=== PATIENT | female | born 1955 | race Caucasian/White ===

== ENCOUNTER 2016-11-23 08:56 | Outpatient (RCR) | payer MEDICARE, MEDICAID ==
[~2016-11-23] VITALS: Ht 157.5 cm; Wt 68.0 kg
== END 2016-12-05 | disposition home or self-care (01) ==
LOC: WCC 08:56
DX: L89.623 Pressure ulcer of left heel, stage 3 (principal); I73.9 Peripheral vascular disease, unspecified; E11.622 Type 2 diabetes mellitus with other skin ulcer; I12.0 Hypertensive chronic kidney disease with stage 5 chronic kidney disease or end stage renal disease; E11.22 Type 2 diabetes mellitus with diabetic chronic kidney disease; N18.6 End stage renal disease; J44.9 Chronic obstructive pulmonary disease, unspecified; Z86.718 Personal history of other venous thrombosis and embolism; Z79.82 Long term (current) use of aspirin
CPT/HCPCS: 11042; 82962

== ENCOUNTER 2016-12-07 08:43 | Outpatient (RCR) | payer MEDICARE, MEDICAID | END 2017-01-05 | disposition home or self-care (01) | LOC: WCC 08:43 | DX: L89.623 Pressure ulcer of left heel, stage 3 (principal); I73.9 Peripheral vascular disease, unspecified; E11.622 Type 2 diabetes mellitus with other skin ulcer; I12.0 Hypertensive chronic kidney disease with stage 5 chronic kidney disease or end stage renal disease; E11.22 Type 2 diabetes mellitus with diabetic chronic kidney disease; N18.6 End stage renal disease; Z79.82 Long term (current) use of aspirin; Z86.718 Personal history of other venous thrombosis and embolism; J44.9 Chronic obstructive pulmonary disease, unspecified | CPT/HCPCS: 11042; 11043; 82962; 87070; 87181; 87205 ==

== ENCOUNTER 2017-01-17 13:30 | Outpatient (RCR) | payer MEDICARE, MEDICAID | END 2017-02-04 | disposition home or self-care (01) | LOC: WCC 13:30 | DX: L97.423 Non-pressure chronic ulcer of left heel and midfoot with necrosis of muscle (principal); E11.622 Type 2 diabetes mellitus with other skin ulcer; I73.9 Peripheral vascular disease, unspecified; I12.0 Hypertensive chronic kidney disease with stage 5 chronic kidney disease or end stage renal disease; E11.22 Type 2 diabetes mellitus with diabetic chronic kidney disease; N18.6 End stage renal disease; Z99.2 Dependence on renal dialysis; J44.9 Chronic obstructive pulmonary disease, unspecified; Z86.718 Personal history of other venous thrombosis and embolism; F32.9 Major depressive disorder, single episode, unspecified; H54.8 Legal blindness, as defined in USA | CPT/HCPCS: 11042; 11043 ==

== ENCOUNTER 2017-02-07 13:30 | Outpatient (RCR) | payer MEDICARE, MEDICAID | END 2017-03-07 | disposition home or self-care (01) | LOC: WCC 13:30 | DX: L97.423 Non-pressure chronic ulcer of left heel and midfoot with necrosis of muscle (principal); I73.9 Peripheral vascular disease, unspecified; E11.622 Type 2 diabetes mellitus with other skin ulcer; I12.0 Hypertensive chronic kidney disease with stage 5 chronic kidney disease or end stage renal disease; E11.22 Type 2 diabetes mellitus with diabetic chronic kidney disease; N18.6 End stage renal disease; J44.9 Chronic obstructive pulmonary disease, unspecified; F32.9 Major depressive disorder, single episode, unspecified; Z79.82 Long term (current) use of aspirin; Z86.718 Personal history of other venous thrombosis and embolism | CPT/HCPCS: 11043; G0463 ==

== ENCOUNTER 2017-03-14 13:49 | Outpatient (RCR) | payer MEDICARE, MEDICAID | END 2017-04-06 | disposition home or self-care (01) | LOC: WCC 13:49 | DX: I73.9 Peripheral vascular disease, unspecified (principal); E11.622 Type 2 diabetes mellitus with other skin ulcer; L97.423 Non-pressure chronic ulcer of left heel and midfoot with necrosis of muscle; I12.0 Hypertensive chronic kidney disease with stage 5 chronic kidney disease or end stage renal disease; E11.22 Type 2 diabetes mellitus with diabetic chronic kidney disease; N18.6 End stage renal disease; J44.9 Chronic obstructive pulmonary disease, unspecified; Z86.718 Personal history of other venous thrombosis and embolism; F32.9 Major depressive disorder, single episode, unspecified; H54.8 Legal blindness, as defined in USA; Z79.82 Long term (current) use of aspirin | CPT/HCPCS: 11042; G0463 ==

== ENCOUNTER 2017-04-18 14:49 | Outpatient (RCR) | payer MEDICARE, MEDICAID | END 2017-05-07 | disposition home or self-care (01) | LOC: WCC 14:49 | DX: L97.423 Non-pressure chronic ulcer of left heel and midfoot with necrosis of muscle (principal); I73.9 Peripheral vascular disease, unspecified; E11.622 Type 2 diabetes mellitus with other skin ulcer; I12.0 Hypertensive chronic kidney disease with stage 5 chronic kidney disease or end stage renal disease; E11.22 Type 2 diabetes mellitus with diabetic chronic kidney disease; N18.6 End stage renal disease; J44.9 Chronic obstructive pulmonary disease, unspecified; Z86.718 Personal history of other venous thrombosis and embolism; Z79.82 Long term (current) use of aspirin; F32.9 Major depressive disorder, single episode, unspecified | CPT/HCPCS: G0463 ==

== ENCOUNTER 2017-05-23 15:27 | Outpatient (RCR) | payer MEDICARE, MEDICAID | END 2017-06-07 | disposition home or self-care (01) | LOC: WCC 15:27 | DX: L89.623 Pressure ulcer of left heel, stage 3 (principal); E11.621 Type 2 diabetes mellitus with foot ulcer; I12.0 Hypertensive chronic kidney disease with stage 5 chronic kidney disease or end stage renal disease; E11.22 Type 2 diabetes mellitus with diabetic chronic kidney disease; N18.6 End stage renal disease; Z99.2 Dependence on renal dialysis; F32.9 Major depressive disorder, single episode, unspecified; Z86.718 Personal history of other venous thrombosis and embolism; J44.9 Chronic obstructive pulmonary disease, unspecified | CPT/HCPCS: 11042; 11043 ==

== ENCOUNTER 2017-06-20 14:11 | Outpatient (RCR) | payer MEDICARE, MEDICAID ==
[2017-07-04] MEDS ORDERED: LANTUS SOL100 UNIT/1 SUBQ (17:04)
[2017-07-04] MEDS ORDERED: AMLODIPINE BESYL5 MG ORAL (17:04)
[2017-07-04] MEDS ORDERED: LOSARTAN POTASS25 MG ORAL (17:04)
[2017-07-04] MEDS ORDERED: SIMVASTATIN40 MG ORAL (17:04)
[2017-07-04] MEDS ORDERED: LABETALOL HCL200 MG ORAL (17:04)
== END 2017-07-05 | disposition home or self-care (01) ==
LOC: WCC 14:11
DX: L89.623 Pressure ulcer of left heel, stage 3 (principal); E11.621 Type 2 diabetes mellitus with foot ulcer; I12.0 Hypertensive chronic kidney disease with stage 5 chronic kidney disease or end stage renal disease; E11.22 Type 2 diabetes mellitus with diabetic chronic kidney disease; N18.6 End stage renal disease; Z99.2 Dependence on renal dialysis; J44.9 Chronic obstructive pulmonary disease, unspecified; Z86.718 Personal history of other venous thrombosis and embolism; F32.9 Major depressive disorder, single episode, unspecified
CPT/HCPCS: 11042; 82962; G0463

== ENCOUNTER 2017-07-04 15:13 | Inpatient (IN) | payer MEDICARE, MEDICAID ==
[~2017-07-04] VITALS: Ht 160 cm; Wt 79.8 kg
--- NOTE | 2017-07-04 15:49 | Emergency Room Report ---
History of Present Illness General Chief Complaint: Altered Mental Status Source: Family Member Present Illness HPI 62-year-old female presents ED for evaluation. Patient brought in by sister from wound care clinic across the street. Sister states that patient appears more confused than normal today. Patient is referred here by podiatry for further evaluation. Patient states she feels okay. However sister and nursing staff and wound care clinic state that patient does appear more confused. No fevers or chills. Patient has history of end-stage renal disease and get dialysis Mondays and and Monday. Patient had dialysis yesterday. Patient has a past is catheter in her right upper chest. Patient has refused AV fistula. Patient was at care clinic for wound to her left foot. Nursing at wound care clinic states that the wound appears ok. Sister states that patient had a cough today. Nonproductive. Denies chest pain or shortness of breath. No other aggravating or relieving factors. Denies any other associated symptoms Allergies: Coded Allergies: NO KNOWN DRUG ALLERGIES (Verified Allergy, Unknown, 11/25/16) Patient History Past Medical History: dementia, renal disease, dialysis Past Surgical History: none Pertinent Family History: none Social History: Denies: smoking, alcohol use, drug use Last Menstrual Period: Unk Now: No Immunizations: UTD Reviewed Nursing Documentation: PMH: Agreed, PSxH: Agreed Nursing Documentation-PMH Hx Diabetes: Yes Hx Dialysis: Yes - Monday, , Monday Review of Systems All Other Systems: negative except mentioned in HPI Physical Exam Vital Signs Date Time Temp Pulse Resp B/P (MAP) Pulse Ox O2 Delivery O2 Flow Rate FiO2 07/04/17 15:27 100.1 65 14 117/55 93 Room Air 100.0 Sp02 EP Interpretation: reviewed, normal General Appearance: no apparent distress, GCS 15, non-toxic, other - confused Head: normocephalic Eyes: bilateral eye normal inspection, bilateral eye PERRL ENT: normal ENT inspection Neck: normal inspection Respiratory: chest non-tender, lungs clear, normal breath sounds, speaking full sentences Cardiovascular #1: regular rate, rhythm, no edema Gastrointestinal: normal bowel sounds, non tender, soft, non-distended, no guarding, no rebound Rectal: deferred Genitourinary: no CVA tenderness Musculoskeletal: normal inspection Neurologic: other - confused Psychiatric: other - confused Skin: normal inspection Lymphatic: normal inspection Medical Decision Making Diagnostic Impression: Primary Impression: Altered mental status Qualified Codes: R41.82 - Altered mental status, unspecified Additional Impressions: ESRD (end stage renal disease) on dialysis Sepsis Qualified Codes: A41.9 - Sepsis, unspecified organism UTI (urinary tract infection) Qualified Codes: N39.0 - Urinary tract infection, site not specified Elevated troponin ER Course Hospital Course 62-year-old female presents with acute onset of confusion during wound care session today Differential diagnoses include: Pneumonia, UTI, sepsis, dehydration, [place]/ unstable angina Clinical course Patient placed on stretcher. On cardiac catheterization technician with stable vitals are ED course. After initial history and physical, I ordered labs, EKG, chest x-ray, blood cultures, CT Head Labs - BUN/Cr elevated, noted leukocytosis, troponins 0.531, lactate > 3, UA grossly positive for UTI CT Head - chronic ischemic changes, no acute process CXR - no acute process, dialysis catheter in place EKG - NSR, no acute ischemic changes interpreted by me Patient denies chest pain. Elevated troponin likely due to troponin leak from end-stage renal disease Abx given. Given aspirin. Patient not given IV fluids because of end-stage renal disease and risk for fluid overload Case discussed with Dr Novak and they agreed to admit patient to their service for further care and support I feel this is a highly complex case requiring extensive working including EKG/ Rhythm strip, Xray/CT/US, Blood/urine lab work, repeat exams while in ED, and administration of strong opiates/narcotics for pain control, admission to hospital or close patient follow up. Diagnosis - AMS, ESRD on dialysis, sepsis, UTI, elevated troponin Patient admitted to telemetry in serious condition Labs Test 07/04/17 15:45 07/04/17 16:45 White Blood Count 8.7 K/UL (4.8-10.8) Red Blood Count 3.44 M/UL (4.20-5.40) Hemoglobin 10.4 G/DL (12.0-16.0) Hematocrit 31.7 % (37.0-47.0) Mean Corpuscular Volume 92 FL (80-99) Mean Corpuscular Hemoglobin 30.3 PG (27.0-31.0) Mean Corpuscular Hemoglobin Concent 32.8 G/DL (32.0-36.0) Red Cell Distribution Width 14.4 % (11.6-14.8) Platelet Count 199 K/UL (150-450) Mean Platelet Volume 8.7 FL (6.5-10.1) Neutrophils (%) (Auto) 69.6 % (45.0-75.0) Lymphocytes (%) (Auto) 12.3 % (20.0-45.0) Monocytes (%) (Auto) 16.4 % (1.0-10.0) Eosinophils (%) (Auto) 0.3 % (0.0-3.0) Basophils (%) (Auto) 1.3 % (0.0-2.0) Sodium Level 137 MMOL/L (136-145) Potassium Level 4.2 MMOL/L (3.5-5.1) Chloride Level 97 MMOL/L (98-107) Carbon Dioxide Level 27 MMOL/L (21-32) Anion Gap 13 mmol/L (5-15) Blood Urea Nitrogen 46 mg/dL (7-18) Creatinine 6.5 MG/DL (0.55-1.30) Estimat Glomerular Filtration Rate 6.5 mL/min (>60) Glucose Level 142 MG/DL (74-106) Lactic Acid Level 3.50 mmol/L (0.66-2.22) Calcium Level 7.8 MG/DL (8.5-10.1) Total Bilirubin 0.4 MG/DL (0.2-1.0) Aspartate Amino Transf (AST/SGOT) 34 U/L (15-37) Alanine Aminotransferase (ALT/SGPT) 18 U/L (12-78) Alkaline Phosphatase 83 U/L (46-116) Total Creatine Kinase 679 U/L (26-308) Creatine Kinase MB 4.1 NG/ML (0.0-3.6) Creatine Kinase MB Relative Index 0.6 Troponin I 0.531 ng/mL (0.000-0.056) Pro-B-Type Natriuretic Peptide > 92670 pg/mL (0-125) Total Protein 7.5 G/DL (6.4-8.2) Albumin 3.2 G/DL (3.4-5.0) Globulin 4.3 g/dL Albumin/Globulin Ratio 0.7 (1.0-2.7) Urine Color Yellow Urine Appearance Cloudy Urine pH 6 (4.5-8.0) Urine Specific [place] 1.015 (1.005-1.035) Urine Protein 4+ (NEGATIVE) Urine Glucose (UA) 3+ (NEGATIVE) Urine Ketones 1+ (NEGATIVE) Urine Occult Blood 5+ (NEGATIVE) Urine Nitrite Negative (NEGATIVE) Urine Bilirubin Negative (NEGATIVE) Urine Urobilinogen Normal MG/DL (0.0-1.0) Urine Leukocyte Esterase 1+ (NEGATIVE) Urine RBC 2-4 /HPF (0 - 2) Urine WBC 2-4 /HPF (0 - 2) Urine Squamous Epithelial Cells Moderate /LPF (NONE/OCC) Urine Amorphous Sediment Many /LPF (NONE) Urine Bacteria Few /HPF (NONE) EKG Diagnostic Results Rate: normal Rhythm: NSR ST Segments: no acute changes ASA given to the pt in ED: Yes Rhythm Strip Diag. Results EP Interpretation: yes Rhythm: NSR, no PVC's, no ectopy Chest X-Ray Diagnostic Results Chest X-Ray Diagnostic Results : Chest X-Ray Ordered: Yes # of Views/Limited/Complete: 1 View Indication: Other - ams EP Interpretation: Yes Interpretation: no consolidation, no effusion, no pneumothorax, no acute cardiopulmonary disease, other - dialysis catheter in place Impression: No acute disease Electronically Signed by: Electronically signed by Panda Valdez MD CT/MRI/US Diagnostic Results CT/MRI/US Diagnostic Results : Imaging Test Ordered: CT Head Impression Chronic ischemic changes. No acute process Last Vital Signs Date Time Temp Pulse Resp B/P (MAP) Pulse Ox O2 Delivery O2 Flow Rate FiO2 07/04/17 15:27 100.1 65 14 117/55 93 Room Air 100.0 Status: improved Disposition: ADMITTED INPATIENT Condition: Serious Referrals: ESTER NOVAK (PCP) PANDA VALDEZ M.D. Jul 04, 2017 15:49
[2017-07-04 16:16] LABS: BASOPHILS % (AUTO) 1.3 % (0.0-2.0); EOSINOPHILS % (AUTO) 0.3 % (0.0-3.0); HEMATOCRIT 31.7 % (37.0-47.0); HEMOGLOBIN 10.4 G/DL (12.0-16.0); LYMPHOCYTES % (AUTO) 12.3 % (20.0-45.0); MEAN CORPUSCULAR VOLUME 92 FL (80-99); MONOCYTES % (AUTO) 16.4 % (1.0-10.0); NEUTROPHILS % (AUTO) 69.6 % (45.0-75.0); PLATELET COUNT 199 K/UL (150-450); RED BLOOD COUNT 3.44 M/UL (4.20-5.40); RED CELL DISTRIBUTION WIDTH 14.4 % (11.6-14.8); WHITE BLOOD COUNT 8.7 K/UL (4.8-10.8)
--- NOTE | 2017-07-04 16:28 | Diagnostic Imaging Report ---
Indication: Altered mental status Technique: Contiguous 5 mm thick transaxial imaging of the head obtained in a Siemens Sensation [address] scanner. Soft tissue and bone windows generated. Automatic Exposure Control was utilized. Total Dose length Product (DLP): 1385.[address] Dose Index Volume (CTDIvol): 70.38 mGy Comparison: none Findings: Patchy, mild to moderate, nonspecific, white matter hypoattenuation is noted throughout the brain consistent with chronic small vessel disease. There is no midline shift, edema, acute hemorrhage, mass effect, or abnormal extra-axial fluid collections. Bones and extra osseous soft tissues are unremarkable. Impression: No acute intracranial bleed, mass effect or edema. Nonspecific white matter hypoattenuation probably due to chronic small vessel disease. The CT scanner at [facility] is accredited by the [employer] and the scans are performed using dose optimization techniques as appropriate to a performed exam including Automatic Exposure control.
--- NOTE | 2017-07-04 16:34 | Diagnostic Imaging Report ---
Indication: Dyspnea Comparison: None A single view chest radiograph was obtained. Findings: Right permacath in good position. The tip is in the right atrium. No definite infiltrate or pulmonary vascular congestion identified. The heart is enlarged. The aorta is mildly enlarged consistent with atherosclerotic vascular disease. The bones are osteopenic. Impression: No acute disease
[2017-07-04 16:37] LABS: ANION GAP 13 mmol/L (5-15); BLOOD UREA NITROGEN 46 mg/dL (7-18); CALCIUM 7.8 MG/DL (8.5-10.1); CARBON DIOXIDE 27 MMOL/L (21-32); CHLORIDE 97 MMOL/L (98-107); CREATININE 6.5 MG/DL (0.55-1.30); POTASSIUM 4.2 MMOL/L (3.5-5.1); SODIUM 137 MMOL/L (136-145)
[2017-07-04 16:52] LABS: ALANINE AMINOTRANSFERASE 18 U/L (12-78); ALBUMIN 3.2 G/DL (3.4-5.0); ALBUMIN/GLOBULIN RATIO 0.7 (1.0-2.7); ALKALINE PHOSPHATASE 83 U/L (46-116); ASPARTATE AMINO TRANSFERASE 34 U/L (15-37); BILIRUBIN,TOTAL 0.4 MG/DL (0.2-1.0); CKMB 4.1 NG/ML (0.0-3.6); CREATINE KINASE 679 U/L (26-308)
[2017-07-04 16:58] VITALS: BP 129/60
[2017-07-04 17:01] LABS: APPEARANCE,URINE CLOUDY; BILIRUBIN, URINE NEGATIVE (NEGATIVE); GLUCOSE, URINE (UA) 3+ (NEGATIVE); KETONES,URINE 1+ (NEGATIVE); LEUKOCYTE ESTERASE ,URINE 1+ (NEGATIVE); NITRITE,URINE NEGATIVE (NEGATIVE); PH,URINE 6 (4.5-8.0); PROTEIN,URINE 4+ (NEGATIVE); UROBILINOGEN,URINE NORMAL MG/DL (0.0-1.0)
[2017-07-04 17:04] LABS: COLOR,URINE YELLOW
[2017-07-04] MEDS ORDERED: LOSARTAN POTASS25 MG ORAL (17:04)
[2017-07-04] MEDS ORDERED: LABETALOL HCL200 MG ORAL (17:04)
[2017-07-04] MEDS ORDERED: SIMVASTATIN40 MG ORAL (17:04)
[2017-07-04] MEDS ORDERED: LANTUS SOL100 UNIT/1 SUBQ (17:04)
[2017-07-04] MEDS ORDERED: AMLODIPINE BESYL5 MG ORAL (17:04)
[2017-07-04] MEDS ORDERED: cefTRIAXone 2 GM in D5W 55 ML IVPB ONE (17:15)
[2017-07-04 18:08] VITALS: BP 148/76
[2017-07-04] MEDS ORDERED: Ipratropium 0.02% Inh Soln 2.5ml UD HHN PRN (18:15)
[2017-07-04] MEDS ORDERED: Milk of Magnesia 30ml Ud ORAL PRN (18:15)
[2017-07-04 20:00] VITALS: BP 146/71
[2017-07-04] MEDS: Docusate 100mg cap ORAL SCH ×2 (21:00→21:23)
[2017-07-04] MEDS: NovoLOG Insulin Flexpen SUBQ SCH (21:00)
--- NOTE | 2017-07-04 21:15 | History and Physical Report ---
DATE OF ADMISSION: 07/04/2017 CHIEF COMPLAINT: Altered level of consciousness. HISTORY OF PRESENT ILLNESS: This is a 62-year-old female, who is one of my dialysis patients. The patient dialyzes on Monday, and Monday. She had a dialysis yesterday. The patient went to the wound Care Center. She was sent to this hospital's emergency department by Dr. Ashford due to altered level of consciousness. The patient has the left foot ulcer. The patient is a very poor historian. The patient is extremely noncompliant. PAST MEDICAL HISTORY: 1. End-stage renal failure, on dialysis. 2. Type 2 diabetes mellitus. 3. Peripheral vascular disease. 4. Left foot ulcer. 5. Poor hemodialysis access through a right-sided PermCath. MEDICATIONS: We will try to obtain the list from dialysis center. ALLERGIES: No known drug allergies. FAMILY HISTORY: Unremarkable. SOCIAL HISTORY: She lives at home with her sister. REVIEW OF SYSTEMS: The patient is confused. PHYSICAL EXAMINATION: GENERAL: This is an elderly female, who is currently, in no acute distress. VITAL SIGNS: Blood pressure 117/55, pulse is 65 and regular, respirations 20, and temperature 100.1 degrees oral. HEENT: The head is normocephalic and atraumatic. Pupils are equal, round, and reactive to light. NECK: Supple. Trachea midline. She has a right-sided internal jugular PermCath. LUNGS: Clear to auscultation. HEART: Regular rate and rhythm without murmurs, rubs, or gallops. ABDOMEN: Soft and nontender. Bowel sounds were active. EXTREMITIES: No clubbing, cyanosis, or edema. She has a left foot ulcer. The left foot is dressed. NEUROLOGIC: The patient is confused. Otherwise nonfocal. LABORATORY AND DIAGNOSTIC DATA: Laboratory results pending. ASSESSMENT: 1. Sepsis, etiology and source currently unknown, possible source is PermCath sepsis pulmonary versus urinary tract infection. 2. End-stage renal failure, on dialysis. 3. Type 2 diabetes mellitus. 4. Peripheral vascular disease. 5. Left foot ulcer. 6. Poor hemodialysis access through a right-sided PermCath. PLAN: 1. Hartman culture. 2. Broad-spectrum IV antibiotics. 3. ID consult. 4. Continue home medications. Sakshi Canales M.D. DR: ELIGIO JOB#: [id number] CC: TONY
[2017-07-04] MEDS: Heparin 5000 units/ml inj SUBQ SCH (21:25)
--- NOTE | 2017-07-04 21:54 | Infectious Diseases Prog Note ---
Assessment/Plan Assessment/Plan Full consult dictated: A) 1) ams, sepsis, sirs, fevers 2) ? line infection 3) doubt left foot ulcers source of sepsis 4) pmh noted 5) allergies - negative P) 1) vancomycin and cefepime 2) check cultures, labs and chest x-ray 3) thanks Subjective Allergies: Coded Allergies: NO KNOWN DRUG ALLERGIES (Verified Allergy, Unknown, 11/25/16) Objective Vital Signs Last 24 Hour Vital Signs Date Time Temp Pulse Resp B/P (MAP) Pulse Ox O2 Delivery O2 Flow Rate FiO2 07/04/17 18:10 98.5 70 24 148/76 100 Nasal Cannula 2.0 98.5 07/04/17 18:08 98.5 70 24 148/76 100 Nasal Cannula 2.0 98.5 07/04/17 16:58 100.0 69 24 129/60 100 Nasal Cannula 2.0 100.0 07/04/17 15:27 100.1 65 14 117/55 93 Room Air 100.0 Height (Feet): 5 Height (Inches): 3.00 Weight (Pounds): 180 Laboratory Tests Test 07/04/17 15:45 07/04/17 16:45 07/04/17 17:50 White Blood Count 8.7 K/UL (4.8-10.8) Red Blood Count 3.44 M/UL (4.20-5.40) L Hemoglobin 10.4 G/DL (12.0-16.0) L Hematocrit 31.7 % (37.0-47.0) L Mean Corpuscular Volume 92 FL (80-99) Mean Corpuscular Hemoglobin 30.3 PG (27.0-31.0) Mean Corpuscular Hemoglobin Concent 32.8 G/DL (32.0-36.0) Red Cell Distribution Width 14.4 % (11.6-14.8) Platelet Count 199 K/UL (150-450) Mean Platelet Volume 8.7 FL (6.5-10.1) Neutrophils (%) (Auto) 69.6 % (45.0-75.0) Lymphocytes (%) (Auto) 12.3 % (20.0-45.0) L Monocytes (%) (Auto) 16.4 % (1.0-10.0) H Eosinophils (%) (Auto) 0.3 % (0.0-3.0) Basophils (%) (Auto) 1.3 % (0.0-2.0) Sodium Level 137 MMOL/L (136-145) Potassium Level 4.2 MMOL/L (3.5-5.1) Chloride Level 97 MMOL/L (98-107) L Carbon Dioxide Level 27 MMOL/L (21-32) Anion Gap 13 mmol/L (5-15) Blood Urea Nitrogen 46 mg/dL (7-18) H Creatinine 6.5 MG/DL (0.55-1.30) H Estimat Glomerular Filtration Rate 6.5 mL/min (>60) Glucose Level 142 MG/DL (74-106) H Lactic Acid Level 3.50 mmol/L (0.66-2.22) H 2.00 mmol/L (0.66-2.22) Calcium Level 7.8 MG/DL (8.5-10.1) L Total Bilirubin 0.4 MG/DL (0.2-1.0) Aspartate Amino Transf (AST/SGOT) 34 U/L (15-37) Alanine Aminotransferase (ALT/SGPT) 18 U/L (12-78) Alkaline Phosphatase 83 U/L (46-116) Total Creatine Kinase 679 U/L (26-308) H Creatine Kinase MB 4.1 NG/ML (0.0-3.6) H Creatine Kinase MB Relative Index 0.6 Troponin I 0.531 ng/mL (0.000-0.056) Pro-B-Type Natriuretic Peptide > 20344 pg/mL (0-125) H Total Protein 7.5 G/DL (6.4-8.2) Albumin 3.2 G/DL (3.4-5.0) L Globulin 4.3 g/dL Albumin/Globulin Ratio 0.7 (1.0-2.7) L Urine Color Yellow Urine Appearance Cloudy Urine pH 6 (4.5-8.0) Urine Specific [place] 1.015 (1.005-1.035) Urine Protein 4+ (NEGATIVE) H Urine Glucose (UA) 3+ (NEGATIVE) H Urine Ketones 1+ (NEGATIVE) H Urine Occult Blood 5+ (NEGATIVE) H Urine Nitrite Negative (NEGATIVE) Urine Bilirubin Negative (NEGATIVE) Urine Urobilinogen Normal MG/DL (0.0-1.0) Urine Leukocyte Esterase 1+ (NEGATIVE) H Urine RBC 2-4 /HPF (0 - 2) H Urine WBC 2-4 /HPF (0 - 2) Urine Squamous Epithelial Cells Moderate /LPF (NONE/OCC) H Urine Amorphous Sediment Many /LPF (NONE) H Urine Bacteria Few /HPF (NONE) Current Medications Medications (Trade) Dose Ordered Sig/Jono Route PRN Reason Start Time Stop Time Status Last Admin Dose Admin Acetaminophen (Tylenol) 650 mg Q4H PRN ORAL Mild Pain (Pain Scale 1-3) 07/04/17 18:15 08/03/17 18:14 Bisacodyl (Dulcolax) 10 mg HSPRN PRN RECTAL Constipation 07/04/17 18:45 08/03/17 18:44 Ceftriaxone Sodium 1 gm/ Sodium Chloride 55 ml @ 110 mls/hr Q24H IVPB 07/05/17 17:00 07/12/17 23:59 Dextrose (Dextrose 50%) STAT PRN IV Hypoglycemia 07/04/17 21:00 08/03/17 20:59 Docusate Sodium (Colace) 100 mg EVERY 12 HOURS ORAL 07/04/17 21:00 08/03/17 20:59 Heparin Sodium (Porcine) (Heparin 5000 units/ml) 5,000 units EVERY 12 HOURS SUBQ 07/04/17 21:00 08/03/17 20:59 07/04/17 21:25 Heparin Sodium (Porcine) (Heparin Sod 1000 units/ml 10ml) 500 unit ONCE IV 07/05/17 18:15 07/05/17 23:59 Heparin Sodium (Porcine) (Heparin Sod 1000 units/ml 10ml) 2,000 unit ONCE IV 07/05/17 18:15 07/05/17 23:59 Heparin Sodium (Porcine) (Heparin) 1,000 unit POSTHD INJ 07/05/17 18:15 08/04/17 23:59 Insulin Aspart (NovoLOG) BEFORE MEALS AND HS SUBQ 07/04/17 21:00 08/03/17 20:59 Ipratropium [place] (Atrovent) 0.5 mcg EVERY 6 HOURS PRN HHN Shortness of Breath 07/04/17 18:15 07/09/17 18:14 Magnesium Hydroxide (Mom) 30 ml HSPRN PRN ORAL Constipation 07/04/17 18:15 08/03/17 18:14 Ondansetron HCl (Zofran) 4 mg Q6H PRN IVP Nausea & Vomiting 07/04/17 18:15 08/03/17 18:14 Sodium Chloride 1,000 ml @ 500 mls/hr Q2H PRN IVLG sbp<90 during hd 07/05/17 18:08 07/05/17 23:59 DARREN BARTLETT Jul 04, 2017 21:54
[2017-07-04] MEDS ORDERED: Cefepime 1gm vial ONE (22:46)
[2017-07-04] MEDS ORDERED: Vancomycin 1250mg/D5W 250ml 250 ML IVPB ONE (23:00)
[2017-07-05] VITALS: BP 132/67
[2017-07-05 04:00] VITALS: BP 148/75
[2017-07-05] MEDS: NovoLOG Insulin Flexpen SUBQ SCH ×4 (07:01→20:35)
[2017-07-05 08:00] VITALS: BP 167/67
[2017-07-05] MEDS: Docusate 100mg cap ORAL SCH ×2 (09:00→20:35)
[2017-07-05 09:59] LABS: BASOPHILS % (AUTO) 0.7 % (0.0-2.0); EOSINOPHILS % (AUTO) 0.4 % (0.0-3.0); HEMATOCRIT 29.9 % (37.0-47.0); HEMOGLOBIN 9.8 G/DL (12.0-16.0); LYMPHOCYTES % (AUTO) 11.1 % (20.0-45.0); MEAN CORPUSCULAR VOLUME 92 FL (80-99); MONOCYTES % (AUTO) 11.4 % (1.0-10.0); NEUTROPHILS % (AUTO) 76.4 % (45.0-75.0); PLATELET COUNT 172 K/UL (150-450); RED BLOOD COUNT 3.25 M/UL (4.20-5.40); RED CELL DISTRIBUTION WIDTH 14.6 % (11.6-14.8); WHITE BLOOD COUNT 8.2 K/UL (4.8-10.8)
[2017-07-05] MEDS: Heparin 5000 units/ml inj SUBQ SCH ×2 (10:13→20:33)
[2017-07-05 10:14] LABS: ANION GAP 10 mmol/L (5-15); BLOOD UREA NITROGEN 23 mg/dL (7-18); CARBON DIOXIDE 28 MMOL/L (21-32); CHLORIDE 98 MMOL/L (98-107); CREATININE 4.2 MG/DL (0.55-1.30); PHOSPHORUS 3.9 MG/DL (2.5-4.9); POTASSIUM 3.5 MMOL/L (3.5-5.1); SODIUM 136 MMOL/L (136-145)
--- NOTE | 2017-07-05 11:50 | Diagnostic Imaging Report ---
Indication: Cough Technique: One view of the chest Comparison: 07/04/2017 Findings: Right jugular tunneled dialysis catheter is again demonstrated. The heart is mildly enlarged. The lungs and pleural spaces are clear. No significant interim change Impression: Cardiomegaly No acute process
[2017-07-05 12:00] VITALS: BP 164/76
--- NOTE | 2017-07-05 15:53 | Cardiology Report ---
APPROVED REPORT EKG Measurement Heart [id number] MI [id number] [id number] Normal sinus rhythm Nonspecific ST and T wave abnormality Abnormal ECG
[2017-07-05 16:00] VITALS: BP 155/69
--- NOTE | 2017-07-05 16:35 | Nephrology Progress Note ---
Assessment/Plan Plan Fever, sepsis - on IV abx due to left foot ulcers? Line sepsis Pneumonia? UTI? ESRD - HD MWF Anemia - MAKI Subjective Subjective Confused. Had HD. Objective Objective Last 24 Hour Vital Signs Date Time Temp Pulse Resp B/P (MAP) Pulse Ox O2 Delivery O2 Flow Rate FiO2 07/05/17 16:00 98.4 76 20 155/69 97 Nasal Cannula 2.0 98.4 07/05/17 12:00 70 07/05/17 12:00 98.4 70 18 164/76 99 Nasal Cannula 2.0 98.4 07/05/17 08:30 Nasal Cannula 2.0 07/05/17 08:00 66 07/05/17 08:00 97.2 65 18 167/67 100 Nasal Cannula 2.0 97.2 07/05/17 05:30 Nasal Cannula 2.0 07/05/17 04:00 68 07/05/17 04:00 99.9 70 20 148/75 99 Nasal Cannula 2.0 99.9 07/05/17 00:00 97.2 57 20 132/67 97 Nasal Cannula 2.0 97.2 07/05/17 00:00 61 07/04/17 20:00 99.1 67 20 146/71 98 Nasal Cannula 2.0 99.1 07/04/17 20:00 65 07/04/17 18:10 98.5 70 24 148/76 100 Nasal Cannula 2.0 98.5 07/04/17 18:08 98.5 70 24 148/76 100 Nasal Cannula 2.0 98.5 07/04/17 16:58 100.0 69 24 129/60 100 Nasal Cannula 2.0 100.0 Intake and Output 07/04/17 07/05/17 19:00 07:00 Intake Total 600.000 ml Balance 600.000 ml Intake Oral 300 ml IV Total 300.000 ml # Voids 1 # Bowel Movements 1 Laboratory Tests 07/04/17 16:45: Urine Color Yellow, Urine Appearance Cloudy, Urine pH 6, Urine Specific [place] 1.015, Urine Protein 4+H, Urine Glucose (UA) 3+H, Urine Ketones 1+H, Urine Occult Blood 5+H, Urine Nitrite Negative, Urine Bilirubin Negative, Urine Urobilinogen Normal, Urine Leukocyte Esterase 1+H, Urine RBC 2-4H, Urine WBC 2-4 , Urine Squamous Epithelial Cells ModerateH, Urine Amorphous Sediment ManyH, Urine Bacteria Few 07/04/17 17:50: Lactic Acid Level 2.00 07/05/17 09:50: White Blood Count 8.2, Red Blood Count 3.25L, Hemoglobin 9.8L, Hematocrit 29.9L , Mean Corpuscular Volume 92, Mean Corpuscular Hemoglobin 30.1, Mean Corpuscular Hemoglobin Concent 32.8, Red Cell Distribution Width 14.6, Platelet Count 172, Mean Platelet Volume 8.6, Neutrophils (%) (Auto) 76.4H, Lymphocytes ( %) (Auto) 11.1L, Monocytes (%) (Auto) 11.4H, Eosinophils (%) (Auto) 0.4, Basophils (%) (Auto) 0.7, Sodium Level 136, Potassium Level 3.5, Chloride Level 98, Carbon Dioxide Level 28, Anion Gap 10, Blood Urea Nitrogen 23H, Creatinine 4.2H, Estimat Glomerular Filtration Rate 10.7, Glucose Level 101, Calcium Level 8.0L, Phosphorus Level 3.9 Height (Feet): 5 Height (Inches): 3.00 Weight (Pounds): 182 Objective Cv RR lungs CTA Abd SNT. BS + E Lt. foot ulcers. ESTER NOVAK Jul 05, 2017 16:35
[2017-07-05] MEDS ORDERED: cefTRIAXone 1 GM in NS 55 ML IVPB SCH (17:00)
[2017-07-05] MEDS ORDERED: Tubing IV Secondary IV ONE (17:36)
[2017-07-05] MEDS ORDERED: NS 275ml ONE (17:36)
[2017-07-05] MEDS ORDERED: Heparin 1000 units/ml 1ml Vial INJ SCH (18:15)
[2017-07-05] MEDS ORDERED: Heparin Sod 1000 units/ml 10ml IV SCH ×2 (18:15)
[2017-07-05 20:00] VITALS: BP 147/90
[2017-07-05] MEDS: Dyna-Hex 2% Top Sol 2oz TOPIC SCH (20:27)
--- NOTE | 2017-07-05 21:50 | Infectious Diseases Prog Note ---
Assessment/Plan Assessment/Plan Full consult dictated: A) 1) ams, sepsis, sirs, fevers 2) ? line infection 3) doubt left foot ulcers source of sepsis 4) pmh noted 5) allergies - negative P) 1) vancomycin and cefepime 2) check cultures, labs and chest x-ray 3) will f/u Subjective Allergies: Coded Allergies: NO KNOWN DRUG ALLERGIES (Verified Allergy, Unknown, 11/25/16) Objective Vital Signs Last 24 Hour Vital Signs Date Time Temp Pulse Resp B/P (MAP) Pulse Ox O2 Delivery O2 Flow Rate FiO2 07/05/17 16:00 72 07/05/17 16:00 98.4 76 20 155/69 97 Nasal Cannula 2.0 98.4 07/05/17 12:00 70 07/05/17 12:00 98.4 70 18 164/76 99 Nasal Cannula 2.0 98.4 07/05/17 08:30 Nasal Cannula 2.0 07/05/17 08:00 66 07/05/17 08:00 97.2 65 18 167/67 100 Nasal Cannula 2.0 97.2 07/05/17 05:30 Nasal Cannula 2.0 07/05/17 04:00 68 07/05/17 04:00 99.9 70 20 148/75 99 Nasal Cannula 2.0 99.9 07/05/17 00:00 97.2 57 20 132/67 97 Nasal Cannula 2.0 97.2 07/05/17 00:00 61 Height (Feet): 5 Height (Inches): 3.00 Weight (Pounds): 182 Microbiology Date/Time Source Procedure Growth Status 07/04/17 21:55 Nasal Nares Influenza Types A,B Antigen (MERON) - Final Complete Laboratory Tests Test 07/05/17 09:50 White Blood Count 8.2 K/UL (4.8-10.8) Red Blood Count 3.25 M/UL (4.20-5.40) L Hemoglobin 9.8 G/DL (12.0-16.0) L Hematocrit 29.9 % (37.0-47.0) L Mean Corpuscular Volume 92 FL (80-99) Mean Corpuscular Hemoglobin 30.1 PG (27.0-31.0) Mean Corpuscular Hemoglobin Concent 32.8 G/DL (32.0-36.0) Red Cell Distribution Width 14.6 % (11.6-14.8) Platelet Count 172 K/UL (150-450) Mean Platelet Volume 8.6 FL (6.5-10.1) Neutrophils (%) (Auto) 76.4 % (45.0-75.0) H Lymphocytes (%) (Auto) 11.1 % (20.0-45.0) L Monocytes (%) (Auto) 11.4 % (1.0-10.0) H Eosinophils (%) (Auto) 0.4 % (0.0-3.0) Basophils (%) (Auto) 0.7 % (0.0-2.0) Sodium Level 136 MMOL/L (136-145) Potassium Level 3.5 MMOL/L (3.5-5.1) Chloride Level 98 MMOL/L (98-107) Carbon Dioxide Level 28 MMOL/L (21-32) Anion Gap 10 mmol/L (5-15) Blood Urea Nitrogen 23 mg/dL (7-18) H Creatinine 4.2 MG/DL (0.55-1.30) H Estimat Glomerular Filtration Rate 10.7 mL/min (>60) Glucose Level 101 MG/DL (74-106) Calcium Level 8.0 MG/DL (8.5-10.1) L Phosphorus Level 3.9 MG/DL (2.5-4.9) Current Medications Medications (Trade) Dose Ordered Sig/Jono Route PRN Reason Start Time Stop Time Status Last Admin Dose Admin Acetaminophen (Tylenol) 650 mg Q4H PRN ORAL Mild Pain (Pain Scale 1-3) 07/04/17 18:15 08/03/17 18:14 Bisacodyl (Dulcolax) 10 mg HSPRN PRN RECTAL Constipation 07/04/17 18:45 08/03/17 18:44 Cefepime HCl 0.5 gm/Sodium Chloride 55 ml @ 110 mls/hr DAILY@2200 IVPB 07/05/17 22:00 07/12/17 21:59 Chlorhexidine Gluconate (Yamilka-Hex 2%) 1 applic DAILY@2000 TOPIC 07/05/17 20:00 08/04/17 19:59 07/05/17 20:27 Dextrose (Dextrose 50%) STAT PRN IV Hypoglycemia 07/04/17 21:00 08/03/17 20:59 Docusate Sodium (Colace) 100 mg EVERY 12 HOURS ORAL 07/04/17 21:00 08/03/17 20:59 Epoetin [place] (Procrit (for ESRD on dialysis)) 5,000 units MON-WED-MON SUBQ 07/05/17 21:00 08/04/17 20:59 Heparin Sodium (Porcine) (Heparin 5000 units/ml) 5,000 units EVERY 12 HOURS SUBQ 07/04/17 21:00 08/03/17 20:59 07/05/17 20:33 Heparin Sodium (Porcine) (Heparin Sod 1000 units/ml 10ml) 500 unit ONCE IV 07/05/17 18:15 07/05/17 23:59 Heparin Sodium (Porcine) (Heparin Sod 1000 units/ml 10ml) 2,000 unit ONCE IV 07/05/17 18:15 07/05/17 23:59 Heparin Sodium (Porcine) (Heparin) 1,000 unit POSTHD INJ 07/05/17 18:15 08/04/17 23:59 Insulin Aspart (NovoLOG) BEFORE MEALS AND HS SUBQ 07/04/17 21:00 08/03/17 20:59 07/05/17 16:49 Ipratropium [place] (Atrovent) 0.5 mcg EVERY 6 HOURS PRN HHN Shortness of Breath 07/04/17 18:15 07/09/17 18:14 Magnesium Hydroxide (Mom) 30 ml HSPRN PRN ORAL Constipation 07/04/17 18:15 08/03/17 18:14 Ondansetron HCl (Zofran) 4 mg Q6H PRN IVP Nausea & Vomiting 07/04/17 18:15 08/03/17 18:14 Sodium Chloride 1,000 ml @ 500 mls/hr Q2H PRN IVLG sbp<90 during hd 07/05/17 18:08 07/05/17 23:59 Vancomycin HCl (Vanco rx to dose) 1 ea DAILY PRN MISC Per rx protocol 07/04/17 22:00 08/03/17 21:59 DARRNE BARTLETT Jul 05, 2017 21:49
[2017-07-05] MEDS: Epogen (for ESRD on dialysis) SUBQ SCH (21:57)
[2017-07-05] MEDS: Cefepime HCl 0.5 GM in NS 55 ML IVPB SCH (22:50)
[2017-07-06] VITALS: BP 151/74
[2017-07-06 04:00] VITALS: BP 129/63
[2017-07-06] MEDS: NovoLOG Insulin Flexpen SUBQ SCH ×4 (06:30→21:00)
--- NOTE | 2017-07-06 07:38 | Nephrology Progress Note ---
Assessment/Plan Plan Fever, sepsis - on IV abx due to left foot ulcers? Line sepsis Pneumonia? UTI? ESRD - HD MWF Anemia - [facility] Subjective Subjective More alert. Objective Objective Last 24 Hour Vital Signs Date Time Temp Pulse Resp B/P (MAP) Pulse Ox O2 Delivery O2 Flow Rate FiO2 07/06/17 04:00 Nasal Cannula 2.0 07/06/17 04:00 63 07/06/17 04:00 97.0 89 20 129/63 99 97.0 07/06/17 00:00 64 07/06/17 00:00 98.1 64 20 151/74 98 Nasal Cannula 2.0 98.1 07/05/17 20:00 71 07/05/17 20:00 99.0 71 19 147/90 95 Nasal Cannula 2.0 99.0 07/05/17 16:00 72 07/05/17 16:00 98.4 76 20 155/69 97 Nasal Cannula 2.0 98.4 07/05/17 12:00 70 07/05/17 12:00 98.4 70 18 164/76 99 Nasal Cannula 2.0 98.4 07/05/17 08:30 Nasal Cannula 2.0 07/05/17 08:00 66 07/05/17 08:00 97.2 65 18 167/67 100 Nasal Cannula 2.0 97.2 Intake and Output 07/05/17 07/06/17 19:00 07:00 Intake Total 360 ml 55 ml Output Total 200 ml 400 ml Balance 160 ml -345 ml Intake Oral 360 ml IV Total 55 ml Output Urine Total 200 ml 400 ml Laboratory Tests 07/05/17 09:50: White Blood Count 8.2, Red Blood Count 3.25L, Hemoglobin 9.8L, Hematocrit 29.9L , Mean Corpuscular Volume 92, Mean Corpuscular Hemoglobin 30.1, Mean Corpuscular Hemoglobin Concent 32.8, Red Cell Distribution Width 14.6, Platelet Count 172, Mean Platelet Volume 8.6, Neutrophils (%) (Auto) 76.4H, Lymphocytes ( %) (Auto) 11.1L, Monocytes (%) (Auto) 11.4H, Eosinophils (%) (Auto) 0.4, Basophils (%) (Auto) 0.7, Sodium Level 136, Potassium Level 3.5, Chloride Level 98, Carbon Dioxide Level 28, Anion Gap 10, Blood Urea Nitrogen 23H, Creatinine 4.2H, Estimat Glomerular Filtration Rate 10.7, Glucose Level 101, Calcium Level 8.0L, Phosphorus Level 3.9 Height (Feet): 5 Height (Inches): 3.00 Weight (Pounds): 175 Objective Cv RR lungs CTA Abd SNT. BS + E Lt. foot ulcers. ESTER NOVAK Jul 06, 2017 07:38
[2017-07-06 08:00] VITALS: BP 155/68
--- NOTE | 2017-07-06 09:15 | Consultation ---
DATE OF CONSULTATION: 07/05/2017 INFECTIOUS DISEASE CONSULTATION CONSULTING PHYSICIAN: Daya Christianson M.D. ATTENDING PHYSICIAN: Sakshi Canales M.D. REASON FOR CONSULTATION: Possible sepsis, fever, and possible line infection. CHIEF COMPLAINT: The patient's chief complaint coming into the hospital is sepsis, fever, and altered mental status. HISTORY OF PRESENT ILLNESS: The patient is a 62-year-old female, who comes to [facility] and was febrile. The patient has history of end-stage renal disease, on hemodialysis. The patient's temperature was as high as 100.1 degrees, which is significantly elevated for hemodialysis patient. The patient also had altered mental status and possibly septic. The patient has a hemodialysis line and could have a line infection. Urinalysis only had 2 to 4 white blood cells and chest x-ray showed no evidence of pneumonia. Infectious Disease consultation is requested for antibiotic management. The patient was placed on cefepime and vancomycin. Blood cultures are pending. The patient has left foot ulcer and wounds that are chronic, but I do not think this was sepsis. PAST MEDICAL HISTORY: The patient has past medical history of end-stage renal disease, hemodialysis, , diabetes, peripheral vascular disease, foot ulcers and wounds, poor hemodialysis access and has a PermCath. She has anemia, elevated creatinine. She has history of UTIs in the past, history of sepsis, elevated troponin. She has history of anemia. MEDICATIONS: Upon reviewing the MAR, she is on the following medications. She is on Epogen, cefepime, vancomycin, chlorhexidine, heparin, sodium chloride, docusate, insulin, Atrovent, acetaminophen, magnesium hydroxide, and Zofran. Outside medications noted and reconciliated. ALLERGIES: No known drug allergies. No antibiotic allergies. SOCIAL HISTORY: Negative for smoking, alcohol, or drug abuse. FAMILY HISTORY: No mention of exposure to tuberculosis or cancer. REVIEW OF SYSTEMS: CONSTITUTIONAL: The patient has generalized weakness, fatigue, fever, and chills coming in. No night sweats or weight loss mentioned. She came in with altered mental status. She seems to be more alert at this time. HEAD AND NECK: No head pain, neck pain, or neck stiffness. No thrush, dysphagia. CARDIAC: No chest pain. No pressors. No palpitation. GASTROINTESTINAL: No nausea, vomiting, or diarrhea. GENITOURINARY: No Pride. She is on hemodialysis. No CVA tenderness. PULMONARY: No congestion, short of breath, hemoptysis, or secretions. SKIN: No rash or itching. EXTREMITIES: No extremity pain. NEUROLOGIC: No seizures. PHYSICAL EXAMINATION: VITAL SIGNS: Temperature 99.4 degrees, pulse rate 76, respiratory rate 20, blood pressure 155/69, and O2 saturation 97%. Respiratory rate has been as high as 24. GENERAL: Alert and responsive. She came in with, I guess, dizziness and altered mental status, but is alert at this time. HEAD AND NECK: Oral exam, no thrush. Eye exam, no icterus. Normocephalic. No facial droop. No neck stiffness. Neck is supple. LUNGS: Clear bilaterally. No rhonchi or rales. HEART: Regular. No obvious gallop or murmur. No friction rub. ABDOMEN: Soft. Positive bowel sounds. Nontender. GENITOURINARY: No Pride. No CVA tenderness. SKIN: No rash. MUSCULOSKELETAL: No effusion. Legs are without cellulitis. PERIPHERAL VASCULAR: No cyanosis or gangrene. She has left foot wounds and ulcers, look fairly stable. No significant drainage or cellulitis. LINES: Line sites without phlebitis. NEUROLOGIC: Generalized weakness. Responsive. LABORATORY AND DIAGNOSTIC DATA: Laboratory data is as follows, white count 8.2, hemoglobin 9.8. LFTs are noted. Creatinine is 4.2 and elevated as noted. Urinalysis had 2 to 4 white blood cells. Blood cultures are pending at this time. Influenza screen is negative. Imaging studies, chest x-ray showed no acute disease is noted or reviewed. No acute process. It did show cardiomegaly. ASSESSMENT AND PLAN: 1. The patient comes in with altered mental status and fever. Temperature is as high as 100.1 degrees, which is significantly elevated for hemodialysis patient. The patient had elevated respiratory rate and also altered mental status. She has . She also had fever with altered mental status, it certainly could be septic. Most likely source of sepsis if she is septic is the line. Influenza screen was negative. Chest x-ray was negative. Urinalysis was fairly benign for urinary tract infection. Continue vancomycin and cefepime to cover line infection and sepsis. Watch the patient's temperatures. Check followup cultures and labs. 2. The patient has end-stage renal disease, on hemodialysis, elevated creatinine. 3. Anemia. 4. Altered mental status. 5. Diabetes. 6. Peripheral vascular disease. 7. Left foot ulcer and wounds. 8. Podiatry followup per wound care protocol. I doubt the wounds and ulcers are source of sepsis. 9. Questionable hypertension. 10. Blood sugar treatment for diabetes per primary. 11. No known allergies. 12. Social history is negative. 13. Family history is noncontributory. 14. MAR was noted. 15. Case was discussed with RN. 16. Continue treatment per primary consultants. Daya Christianson M.D. DR: Janki JOB#: [id number] CC:
[2017-07-06] MEDS: Docusate 100mg cap ORAL SCH ×2 (10:08→21:00)
[2017-07-06] MEDS: Heparin 5000 units/ml inj SUBQ SCH ×2 (10:10→21:00)
[2017-07-06] MEDS ORDERED: Vancomycin 1gm/D5W 275ml IVPB ONE ×2 (11:00)
[2017-07-06 12:00] VITALS: BP 149/63
--- NOTE | 2017-07-06 12:46 | Wound Care Consultation ---
Wound Assessment Wound Assessment #1: Wound Number: 1 Wound Present on Admission: Yes New Wound: No Status Change of Wound: No Wound Location Body Site Modif: left, anterior Wound Location Body Site: toe - 5th Flaca Test: Does not Flaca Pressure Ulcer Stage: Unstageable Wound Thickness: Full Thickness Wound Length: 2.0 Wound Width: 1.0 Wound Depth: utd Percent of Wound Bed Yellow/Wh: 100 Wound Drainage Description: Serosanguineous Wound Drainage Amount: Scant Wound Drainage Odor: None/Absent Tissue Surrounding Wound: Indurated Wound General Appearance: Reddened - yellow, Draining Wound Assessment #2: Wound Number: 2 Wound Present on Admission: Yes New Wound: No Status Change of Wound: No Wound Location Body Site Modif: medial Wound Location Body Site: malleolus/ankle Wound Type: pressure ulcer Flaca Test: Does not Flaca Pressure Ulcer Stage: Unstageable Wound Thickness: Full Thickness Wound Length: 2.5 Wound Width: 2.5 Wound Depth: utd Percent of Wound Bed Yellow/Wh: 100 Wound Drainage Description: Serosanguineous Wound Drainage Amount: Moderate Wound Drainage Odor: None/Absent Tissue Surrounding Wound: Erythemic Wound General Appearance: Reddened - yellow, Draining Wound Assessment #3: Wound Number: 3 Wound Present on Admission: Yes New Wound: No Status Change of Wound: No Wound Location Body Site Modif: left Wound Location Body Site: heel Wound Type: pressure ulcer Flaca Test: Does not Flaca Pressure Ulcer Stage: Unstageable Wound Thickness: Full Thickness Wound Length: 3.5 Wound Width: 3.5 Wound Depth: utd Percent of Wound Bed Yellow/Wh: 100 Wound Drainage Description: Serosanguineous Wound Drainage Amount: Scant Wound Drainage Odor: None/Absent Tissue Surrounding Wound: Macerated Wound General Appearance: Reddened - yellow, Draining Wound Comment #1 Left 5th anterior toe unstageable pressure ulcer #2 Left medial malleolus unstageable pressure ulcer #3 Left heel unstageable pressure ulcer Recommendation -Local wound care per protocol -Keep clean and dry -Offload both heels -Heel protector on both heels -Optimize nutrition -Turn and reposition -Low air loss mattress -Assess and f/u accordingly for any changes ARLET HERCULES RN Jul 06, 2017 12:46
[2017-07-06 16:00] VITALS: BP 153/73
[2017-07-06 20:00] VITALS: BP 159/69
[2017-07-06] MEDS: Cefepime HCl 0.5 GM in NS 55 ML IVPB SCH (22:28)
[2017-07-06] MEDS: Dyna-Hex 2% Top Sol 2oz TOPIC SCH (22:28)
[2017-07-07] VITALS: BP 158/77
[2017-07-07 04:00] VITALS: BP 161/82
[2017-07-07] MEDS ORDERED: Heparin 1000 units/ml 1ml Vial INJ SCH (06:00)
[2017-07-07] MEDS ORDERED: Heparin Sod 1000 units/ml 10ml IV SCH (06:00)
[2017-07-07] MEDS: NovoLOG Insulin Flexpen SUBQ SCH ×4 (06:14→21:00)
[2017-07-07 07:01] LABS: BASOPHILS % (AUTO) 1.3 % (0.0-2.0); HEMATOCRIT 29.6 % (37.0-47.0); HEMOGLOBIN 9.8 G/DL (12.0-16.0); LYMPHOCYTES % (AUTO) 13.5 % (20.0-45.0); MEAN CORPUSCULAR VOLUME 91 FL (80-99); MONOCYTES % (AUTO) 12.8 % (1.0-10.0); NEUTROPHILS % (AUTO) 71.4 % (45.0-75.0); PLATELET COUNT 156 K/UL (150-450); RED BLOOD COUNT 3.23 M/UL (4.20-5.40); RED CELL DISTRIBUTION WIDTH 14.8 % (11.6-14.8); WHITE BLOOD COUNT 7.8 K/UL (4.8-10.8)
[2017-07-07 07:21] LABS: ANION GAP 16 mmol/L (5-15); BLOOD UREA NITROGEN 40 mg/dL (7-18); CALCIUM 7.3 MG/DL (8.5-10.1); CARBON DIOXIDE 22 MMOL/L (21-32); CHLORIDE 98 MMOL/L (98-107); CREATININE 7.5 MG/DL (0.55-1.30); POTASSIUM 4.3 MMOL/L (3.5-5.1); SODIUM 136 MMOL/L (136-145)
[2017-07-07] MEDS: Docusate 100mg cap ORAL SCH ×2 (07:58→21:00)
[2017-07-07] MEDS: Heparin 5000 units/ml inj SUBQ SCH ×2 (07:58→21:00)
[2017-07-07 11:04] VITALS: BP 150/80
[2017-07-07] MEDS: guaiFENesin DM 100mg/5ml ORAL PRN (11:25)
--- NOTE | 2017-07-07 13:24 | Infectious Diseases Prog Note ---
Assessment/Plan Assessment/Plan ASSESSMENT AND PLAN: 1. Possible sepsis, fevers, ? line infection, left leg wounds, chest x-ray - negative, bc-negative, wc - negative - cefepime and vancomycin - consider discontinuation of abx if cultures remain negative - wound care per protocol and podiatry 2.The patient has end-stage renal disease, on hemodialysis, elevated creatinine. 3. Anemia. 4. Altered mental status. 5. Diabetes. 6. Peripheral vascular disease. 7. Left foot ulcer and wounds. 8. Podiatry followup per wound care protocol. I doubt the wounds and ulcers are source of sepsis. 9. Questionable hypertension. 10. Blood sugar treatment for diabetes per primary. 11. No known allergies. 12. Social history is negative. 13. Family history is noncontributory. 14. MAR was noted. 15. Case was discussed with RN. 16. Continue treatment per primary consultants. Subjective Constitutional: Denies: fever HEENT: Denies: congestion Respiratory: Denies: shortness of breath Cardiovascular: Denies: chest pain Gastrointestinal/Abdominal: Denies: nausea, vomiting, diarrhea Genitourinary: Reports: other - no gonzalez Neurologic: Denies: headache Psychiatric: Denies: depression Skin: Denies: rash Hematologic: Denies: bleeding Musculoskeletal: Denies: pain Allergies: Coded Allergies: NO KNOWN DRUG ALLERGIES (Verified Allergy, Unknown, 11/25/16) Objective Vital Signs Last 24 Hour Vital Signs Date Time Temp Pulse Resp B/P (MAP) Pulse Ox O2 Delivery O2 Flow Rate FiO2 07/07/17 11:04 98.2 69 19 150/80 93 Room Air 98.2 07/07/17 07:51 68 07/07/17 07:05 67 18 Room Air 07/07/17 04:00 64 07/07/17 04:00 98.2 69 19 161/82 93 Nasal Cannula 2.0 98.2 07/07/17 00:00 97.9 66 20 158/77 93 Nasal Cannula 2.0 97.9 07/07/17 00:00 66 07/06/17 20:10 63 18 Room Air 07/06/17 20:00 66 07/06/17 20:00 97.9 65 22 159/69 95 Nasal Cannula 2.0 97.9 07/06/17 16:00 98.7 65 18 153/73 95 Nasal Cannula 2.0 98.7 07/06/17 16:00 66 Height (Feet): 5 Height (Inches): 3.00 Weight (Pounds): 176 General Appearance: no acute distress HEENT: normocephalic, atraumatic, anicteric, mucous membranes moist, EOMI, pharynx normal, supple, no JVD Respiratory/Chest: lungs clear, normal breath sounds, no respiratory distress, no accessory muscle use Cardiovascular: normal rate, regular rhythm, no gallop/murmur, no JVD Abdomen: normal bowel sounds, soft, non tender, no organomegaly, non distended Genitourinary: other - no gonzalez Extremities: no cyanosis Skin: no rash 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 The heart is mildly enlarged. The lungs and pleural spaces are clear. No significant interim change Impression: Cardiomegaly No acute process Microbiology Date/Time Source Procedure Growth Status 07/04/17 15:55 Blood Blood Culture - Preliminary NO GROWTH AFTER 48 HOURS Resulted 07/04/17 15:45 Blood Blood Culture - Preliminary NO GROWTH AFTER 48 HOURS Resulted 07/04/17 20:00 Wound Gram Stain - Final Resulted 07/04/17 20:00 Wound Culture - Preliminary Usual Skin Gina Resulted 07/04/17 21:55 Nasal Nares Influenza Types A,B Antigen (MERON) - Final Complete 07/04/17 20:00 Nasal Nares Right MRSA Culture - Final NO METHICILLIN RESISTANT STAPH AUREUS... Complete 07/04/17 20:00 Rectal Mucosa VRE Culture - Final NO VANCOMYCIN RESISTANT ENTEROCOCCUS ... Complete Laboratory Tests Test 07/07/17 05:35 White Blood Count 7.8 K/UL (4.8-10.8) Red Blood Count 3.23 M/UL (4.20-5.40) L Hemoglobin 9.8 G/DL (12.0-16.0) L Hematocrit 29.6 % (37.0-47.0) L Mean Corpuscular Volume 91 FL (80-99) Mean Corpuscular Hemoglobin 30.5 PG (27.0-31.0) Mean Corpuscular Hemoglobin Concent 33.3 G/DL (32.0-36.0) Red Cell Distribution Width 14.8 % (11.6-14.8) Platelet Count 156 K/UL (150-450) Mean Platelet Volume 7.9 FL (6.5-10.1) Neutrophils (%) (Auto) 71.4 % (45.0-75.0) Lymphocytes (%) (Auto) 13.5 % (20.0-45.0) L Monocytes (%) (Auto) 12.8 % (1.0-10.0) H Eosinophils (%) (Auto) 1.0 % (0.0-3.0) Basophils (%) (Auto) 1.3 % (0.0-2.0) Sodium Level 136 MMOL/L (136-145) Potassium Level 4.3 MMOL/L (3.5-5.1) Chloride Level 98 MMOL/L (98-107) Carbon Dioxide Level 22 MMOL/L (21-32) Anion Gap 16 mmol/L (5-15) H Blood Urea Nitrogen 40 mg/dL (7-18) H Creatinine 7.5 MG/DL (0.55-1.30) H Estimat Glomerular Filtration Rate 5.5 mL/min (>60) Glucose Level 78 MG/DL (74-106) Calcium Level 7.3 MG/DL (8.5-10.1) L Current Medications Medications (Trade) Dose Ordered Sig/Jono Route PRN Reason Start Time Stop Time Status Last Admin Dose Admin Acetaminophen (Tylenol) 650 mg Q4H PRN ORAL Mild Pain (Pain Scale 1-3) 07/04/17 18:15 08/03/17 18:14 Bisacodyl (Dulcolax) 10 mg HSPRN PRN RECTAL Constipation 07/04/17 18:45 08/03/17 18:44 Cefepime HCl 0.5 gm/Sodium Chloride 55 ml @ 110 mls/hr DAILY@2200 IVPB 07/05/17 22:00 07/12/17 21:59 07/06/17 22:28 Chlorhexidine Gluconate (Yamilka-Hex 2%) 1 applic DAILY@2000 TOPIC 07/05/17 20:00 08/04/17 19:59 07/06/17 22:28 Dextrose (Dextrose 50%) STAT PRN IV Hypoglycemia 07/04/17 21:00 08/03/17 20:59 Docusate Sodium (Colace) 100 mg EVERY 12 HOURS ORAL 07/04/17 21:00 08/03/17 20:59 07/06/17 10:08 Epoetin Jeremy (Procrit (for ESRD on dialysis)) 5,000 units MON-WED-MON SUBQ 07/05/17 21:00 08/04/17 20:59 07/05/17 21:57 Guaifenesin/ Dextromethorphan (Robitussin DM) 5 ml Q8H PRN ORAL For Cough 07/07/17 11:15 08/06/17 11:14 07/07/17 11:25 Heparin Sodium (Porcine) (Heparin 5000 units/ml) 5,000 units EVERY 12 HOURS SUBQ 07/04/17 21:00 08/03/17 20:59 07/06/17 10:10 Heparin Sodium (Porcine) (Heparin Sod 1000 units/ml 10ml) 2,000 unit ONCE IV 07/07/17 06:00 07/07/17 18:00 Heparin Sodium (Porcine) (Heparin) 1,000 unit POSTHD INJ 07/05/17 18:15 08/04/17 23:59 Heparin Sodium (Porcine) (Heparin) 1,000 unit POSTHD INJ 07/07/17 06:00 07/07/17 18:00 Insulin Aspart (NovoLOG) BEFORE MEALS AND HS SUBQ 07/04/17 21:00 08/03/17 20:59 07/05/17 16:49 Ipratropium Christmas (Atrovent) 0.5 mcg EVERY 6 HOURS PRN HHN Shortness of Breath 07/04/17 18:15 07/09/17 18:14 Magnesium Hydroxide (Mom) 30 ml HSPRN PRN ORAL Constipation 07/04/17 18:15 08/03/17 18:14 Ondansetron HCl (Zofran) 4 mg Q6H PRN IVP Nausea & Vomiting 07/04/17 18:15 08/03/17 18:14 Sodium Chloride 1,000 ml @ 500 mls/hr Q2H PRN IVLG sbp<90 during hd 07/07/17 06:00 07/07/17 18:00 Vancomycin HCl (Vanco rx to dose) 1 ea DAILY PRN MISC Per rx protocol 07/04/17 22:00 08/03/17 21:59 DARREN BARTLETT Jul 07, 2017 13:24
--- NOTE | 2017-07-07 15:34 | Nephrology Progress Note ---
Assessment/Plan Plan Fever, sepsis - on IV abx due to left foot ulcers? Line sepsis Pneumonia? UTI? ESRD - HD MWF Anemia - [facility] MRI Lt. Foot Subjective Subjective More alert. Objective Objective Last 24 Hour Vital Signs Date Time Temp Pulse Resp B/P (MAP) Pulse Ox O2 Delivery O2 Flow Rate FiO2 07/07/17 11:40 61 07/07/17 11:04 98.2 69 19 150/80 93 Room Air 98.2 07/07/17 07:51 68 07/07/17 07:05 67 18 Room Air 07/07/17 04:00 64 07/07/17 04:00 98.2 69 19 161/82 93 Nasal Cannula 2.0 98.2 07/07/17 00:00 97.9 66 20 158/77 93 Nasal Cannula 2.0 97.9 07/07/17 00:00 66 07/06/17 20:10 63 18 Room Air 07/06/17 20:00 66 07/06/17 20:00 97.9 65 22 159/69 95 Nasal Cannula 2.0 97.9 07/06/17 16:00 98.7 65 18 153/73 95 Nasal Cannula 2.0 98.7 07/06/17 16:00 66 Intake and Output 07/06/17 07/07/17 19:00 07:00 Intake Total 240 ml 100 ml Output Total 0 ml Balance 240 ml 100 ml Intake Oral 240 ml 100 ml Output Urine Total 0 ml # Voids 3 # Bowel Movements 3 Laboratory Tests 07/07/17 05:35: White Blood Count 7.8, Red Blood Count 3.23L, Hemoglobin 9.8L, Hematocrit 29.6L , Mean Corpuscular Volume 91, Mean Corpuscular Hemoglobin 30.5, Mean Corpuscular Hemoglobin Concent 33.3, Red Cell Distribution Width 14.8, Platelet Count 156, Mean Platelet Volume 7.9, Neutrophils (%) (Auto) 71.4, Lymphocytes (% ) (Auto) 13.5L, Monocytes (%) (Auto) 12.8H, Eosinophils (%) (Auto) 1.0, Basophils (%) (Auto) 1.3, Sodium Level 136, Potassium Level 4.3, Chloride Level 98, Carbon Dioxide Level 22, Anion Gap 16H, Blood Urea Nitrogen 40H, Creatinine 7.5H, Estimat Glomerular Filtration Rate 5.5, Glucose Level 78, Calcium Level 7.3L Height (Feet): 5 Height (Inches): 3.00 Weight (Pounds): 176 Objective Cv RR lungs CTA Abd SNT. BS + E Lt. foot ulcers. ESTER NOVAK Jul 07, 2017 15:33
[2017-07-07 16:00] VITALS: BP 143/65
[2017-07-07 20:00] VITALS: BP 172/77
[2017-07-07] MEDS: Dyna-Hex 2% Top Sol 2oz TOPIC SCH (20:00)
[2017-07-07] MEDS: Epogen (for ESRD on dialysis) SUBQ SCH (21:00)
[2017-07-07] MEDS: Cefepime HCl 0.5 GM in NS 55 ML IVPB SCH (22:00)
[2017-07-08] VITALS: BP 159/80
[2017-07-08 04:00] VITALS: BP 175/75
[2017-07-08] MEDS: NovoLOG Insulin Flexpen SUBQ SCH ×4 (06:30→21:00)
[2017-07-08] MEDS: Docusate 100mg cap ORAL SCH ×2 (07:51→21:00)
[2017-07-08] MEDS: Heparin 5000 units/ml inj SUBQ SCH ×2 (07:52→21:00)
[2017-07-08 08:53] VITALS: BP 181/100
--- NOTE | 2017-07-08 11:26 | Consultation ---
Consult Note Assessment/Plan A/ 1) Pressure ulcer to left heel Stage 3 - healing 2) Nonpressure ulcer to left ankle to level of subq - new 3) Nonpressure ulcer to left 5th toe UTD - new 4) PAD 5) DM 6) ESRD 7) Noncompliant P/ 1) Cont Abx per ID. Lower extremity wounds unlikely source of infection 2) MRI left foot pending 3) Art ultz BLE reviewed. Dr Edmonds has been consulted. 4) Cont local care. 5) Patient is known to me and I have been following her at the wound center. We had healed her wounds, but patient is noncompliant and has developed more lower extremity wounds. Meliton Ashford DPM Jul 08, 2017 11:25
[2017-07-08 12:56] VITALS: BP 174/90
--- NOTE | 2017-07-08 13:21 | Nephrology Progress Note ---
Assessment/Plan Plan Fever, sepsis - on IV abx due to left foot ulcers? Line sepsis Pneumonia? UTI? ESRD - HD [facility] Non compliant. Refusing HD, meds. Wants to leave AMA. DW pt's sister. She's coming to talk to her. She finally agreed to me. I don't know if it's going to materialize. Instructed outpatient Unit not to accept her but to send her to ED! Asked for psych eval! Subjective Subjective Refusing HD! Wants to go home AMA! Refusing meds! Objective Objective Last 24 Hour Vital Signs Date Time Temp Pulse Resp B/P (MAP) Pulse Ox O2 Delivery O2 Flow Rate FiO2 07/08/17 12:56 97.0 70 18 174/90 94 Room Air 97.0 07/08/17 08:53 97.0 64 20 181/100 94 Room Air 97.0 07/08/17 08:01 64 07/08/17 06:50 65 16 Room Air 07/08/17 04:00 97.0 61 20 175/75 94 Room Air 97.0 07/08/17 04:00 62 07/08/17 00:00 97.7 66 20 159/80 93 Room Air 97.7 07/08/17 00:00 64 07/07/17 20:24 62 18 Room Air 07/07/17 20:00 97.0 61 22 172/77 96 Room Air 97.0 07/07/17 20:00 60 07/07/17 16:00 97.7 62 19 143/65 93 Room Air 97.7 07/07/17 15:12 62 Intake and Output 07/07/17 07/08/17 19:00 07:00 Intake Total 200 ml Balance 200 ml Intake Oral 200 ml # Voids 4 # Bowel Movements 1 Height (Feet): 5 Height (Inches): 3.00 Weight (Pounds): 176 Objective Cv RR lungs CTA Abd SNT. BS + E Lt. foot ulcers. ESTER NOVAK Jul 08, 2017 13:21
[2017-07-08] MEDS: Haloperidol 5mg/ml Inj IM SCH ×2 (14:31→22:00)
[2017-07-08 17:03] VITALS: BP 157/77
[2017-07-08 20:00] VITALS: BP 167/81
[2017-07-08] MEDS ORDERED: Vancomycin 1gm/D5W 275ml IVPB ONE ×2 (20:00)
[2017-07-08] MEDS: Dyna-Hex 2% Top Sol 2oz TOPIC SCH (20:00)
[2017-07-08] MEDS: guaiFENesin DM 100mg/5ml ORAL PRN (20:18)
[2017-07-08] MEDS: Cefepime HCl 0.5 GM in NS 55 ML IVPB SCH (22:00)
[2017-07-09] VITALS (7 sets, daily range): BP systolic 129–162; BP diastolic 54–76
[2017-07-09] MEDS: Haloperidol 5mg/ml Inj IM SCH ×3 (06:00→21:46)
[2017-07-09] MEDS: NovoLOG Insulin Flexpen SUBQ SCH ×4 (06:30→20:45)
[2017-07-09] MEDS: Docusate 100mg cap ORAL SCH ×2 (09:00→20:44)
[2017-07-09] MEDS: Heparin 5000 units/ml inj SUBQ SCH ×2 (09:00→20:45)
--- NOTE | 2017-07-09 13:50 | Nephrology Progress Note ---
Assessment/Plan Plan DC home today Subjective Subjective Had HD yesterday Objective Objective Last 24 Hour Vital Signs Date Time Temp Pulse Resp B/P (MAP) Pulse Ox O2 Delivery O2 Flow Rate FiO2 07/09/17 12:00 97.0 62 18 140/64 96 Nasal Cannula 2.0 97.0 07/09/17 08:00 97.0 68 18 151/76 98 Nasal Cannula 2.0 97.0 07/09/17 04:00 97.9 70 19 161/75 94 Nasal Cannula 2.0 97.9 07/09/17 02:42 63 18 Room Air 07/09/17 00:00 97.9 63 18 129/54 96 Nasal Cannula 2.0 97.9 07/08/17 20:00 97.5 67 18 167/81 93 Nasal Cannula 2.0 97.5 07/08/17 17:40 Room Air 07/08/17 17:03 66 157/77 07/08/17 14:40 Room Air 07/08/17 14:35 70 174/90 Intake and Output 07/08/17 07/09/17 19:00 07:00 Intake Total 240 ml Balance 240 ml Intake Oral 240 ml # Voids 2 # Bowel Movements 1 Laboratory Tests 07/08/17 18:10: Random Vancomycin Level 9.2 Height (Feet): 5 Height (Inches): 3.00 Weight (Pounds): 176 Objective Cv RR lungs CTA Abd SNT. BS + E Lt. foot ulcers. ESTER NOVAK Jul 09, 2017 13:50
--- NOTE | 2017-07-09 16:34 | Infectious Diseases Prog Note ---
Assessment/Plan Assessment/Plan ASSESSMENT AND PLAN: 1. Possible sepsis, fevers, ? line infection, left leg wounds, chest x-ray - negative, bc-negative, wc - negative - discontinue cefepime and vancomycin - observe off abx - wound care per protocol and podiatry - check labs 2.The patient has end-stage renal disease, on hemodialysis, elevated creatinine. 3. Anemia. 4. Altered mental status. 5. Diabetes. 6. Peripheral vascular disease. 7. Left foot ulcer and wounds. 8. Podiatry followup per wound care protocol. I doubt the wounds and ulcers are source of sepsis. 9. Questionable hypertension. 10. Blood sugar treatment for diabetes per primary. 11. No known allergies. 12. Social history is negative. 13. Family history is noncontributory. 14. MAR was noted. 15. Case was discussed with RN. 16. Continue treatment per primary consultants. Subjective Constitutional: Denies: fever HEENT: Denies: congestion Respiratory: Denies: shortness of breath Cardiovascular: Denies: chest pain Gastrointestinal/Abdominal: Denies: nausea, vomiting, diarrhea Genitourinary: Reports: other - no gonzalez Neurologic: Denies: headache Psychiatric: Denies: depression Skin: Denies: rash Hematologic: Denies: bleeding Musculoskeletal: Denies: pain Allergies: Coded Allergies: NO KNOWN DRUG ALLERGIES (Verified Allergy, Unknown, 11/25/16) Objective Vital Signs Last 24 Hour Vital Signs Date Time Temp Pulse Resp B/P (MAP) Pulse Ox O2 Delivery O2 Flow Rate FiO2 07/09/17 12:00 97.0 62 18 140/64 96 Nasal Cannula 2.0 97.0 07/09/17 08:00 97.0 68 18 151/76 98 Nasal Cannula 2.0 97.0 07/09/17 04:00 97.9 70 19 161/75 94 Nasal Cannula 2.0 97.9 07/09/17 02:42 63 18 Room Air 07/09/17 00:00 97.9 63 18 129/54 96 Nasal Cannula 2.0 97.9 07/08/17 20:00 97.5 67 18 167/81 93 Nasal Cannula 2.0 97.5 07/08/17 17:40 Room Air 07/08/17 17:03 66 157/77 Height (Feet): 5 Height (Inches): 3.00 Weight (Pounds): 176 General Appearance: no acute distress HEENT: normocephalic, atraumatic, anicteric, mucous membranes moist, EOMI, pharynx normal, supple, no JVD Respiratory/Chest: lungs clear, normal breath sounds, no respiratory distress, no accessory muscle use Cardiovascular: normal rate, regular rhythm, no gallop/murmur, no JVD Abdomen: normal bowel sounds, soft, non tender, no organomegaly, non distended Genitourinary: other - no gonzalez Extremities: no cyanosis Skin: no rash Neurologic/Psychiatric: loss claim clerk II-XII grossly normal, alert, oriented x 3, responsive Lymphatic: no neck adenopathy Musculoskeletal: no effusion Objective Chest x-ray - negative Findings: Right jugular tunneled dialysis catheter is again demonstrated. The heart is mildly enlarged. The lungs and pleural spaces are clear. No significant interim change Impression: Cardiomegaly No acute process Microbiology Date/Time Source Procedure Growth Status 07/04/17 15:55 Blood Blood Culture - Preliminary NO GROWTH AFTER 4 DAYS Resulted 07/04/17 20:00 Wound Gram Stain - Final Complete 07/04/17 20:00 Wound Culture - Final Usual Skin Gina Complete 07/04/17 21:55 Nasal Nares Influenza Types A,B Antigen (MERON) - Final Complete 07/04/17 20:00 Rectal Mucosa VRE Culture - Final NO VANCOMYCIN RESISTANT ENTEROCOCCUS ... Complete Labs Test 07/07/17 05:35 07/08/17 18:10 White Blood Count 7.8 K/UL (4.8-10.8) Red Blood Count 3.23 M/UL (4.20-5.40) Hemoglobin 9.8 G/DL (12.0-16.0) Hematocrit 29.6 % (37.0-47.0) Mean Corpuscular Volume 91 FL (80-99) Mean Corpuscular Hemoglobin 30.5 PG (27.0-31.0) Mean Corpuscular Hemoglobin Concent 33.3 G/DL (32.0-36.0) Red Cell Distribution Width 14.8 % (11.6-14.8) Platelet Count 156 K/UL (150-450) Mean Platelet Volume 7.9 FL (6.5-10.1) Neutrophils (%) (Auto) 71.4 % (45.0-75.0) Lymphocytes (%) (Auto) 13.5 % (20.0-45.0) Monocytes (%) (Auto) 12.8 % (1.0-10.0) Eosinophils (%) (Auto) 1.0 % (0.0-3.0) Basophils (%) (Auto) 1.3 % (0.0-2.0) Sodium Level 136 MMOL/L (136-145) Potassium Level 4.3 MMOL/L (3.5-5.1) Chloride Level 98 MMOL/L (98-107) Carbon Dioxide Level 22 MMOL/L (21-32) Anion Gap 16 mmol/L (5-15) Blood Urea Nitrogen 40 mg/dL (7-18) Creatinine 7.5 MG/DL (0.55-1.30) Estimat Glomerular Filtration Rate 5.5 mL/min (>60) Glucose Level 78 MG/DL (74-106) Calcium Level 7.3 MG/DL (8.5-10.1) Random Vancomycin Level 9.2 ug/mL Laboratory Tests Test 07/08/17 18:10 Random Vancomycin Level 9.2 ug/mL Current Medications Medications (Trade) Dose Ordered Sig/Jono Route PRN Reason Start Time Stop Time Status Last Admin Dose Admin Acetaminophen (Tylenol) 650 mg Q4H PRN ORAL Mild Pain (Pain Scale 1-3) 07/04/17 18:15 08/03/17 18:14 Amlodipine Besylate (Norvasc) 10 mg DAILY ORAL 07/08/17 10:30 08/07/17 10:29 07/08/17 14:35 Bisacodyl (Dulcolax) 10 mg HSPRN PRN RECTAL Constipation 07/04/17 18:45 08/03/17 18:44 Cefepime HCl 0.5 gm/Sodium Chloride 55 ml @ 110 mls/hr DAILY@2200 IVPB 07/05/17 22:00 07/12/17 21:59 07/06/17 22:28 Chlorhexidine Gluconate (Yamilka-Hex 2%) 1 applic DAILY@2000 TOPIC 07/05/17 20:00 08/04/17 19:59 07/06/17 22:28 Dextrose (Dextrose 50%) STAT PRN IV Hypoglycemia 07/04/17 21:00 08/03/17 20:59 Docusate Sodium (Colace) 100 mg EVERY 12 HOURS ORAL 07/04/17 21:00 08/03/17 20:59 07/06/17 10:08 Epoetin Jeremy (Procrit (for ESRD on dialysis)) 5,000 units MON-WED-MON SUBQ 07/05/17 21:00 08/04/17 20:59 07/05/17 21:57 Guaifenesin/ Dextromethorphan (Robitussin DM) 5 ml Q8H PRN ORAL For Cough 07/07/17 11:15 08/06/17 11:14 07/08/17 20:18 Haloperidol Lactate (Haldol) 2 mg Q8HR IM 07/08/17 14:00 08/07/17 13:59 Heparin Sodium (Porcine) (Heparin 5000 units/ml) 5,000 units EVERY 12 HOURS SUBQ 07/04/17 21:00 08/03/17 20:59 07/06/17 10:10 Heparin Sodium (Porcine) (Heparin Sod 1000 units/ml 10ml) 2,000 unit ONCE IV 07/10/17 06:00 07/10/17 18:00 Heparin Sodium (Porcine) (Heparin) 1,000 unit POSTHD INJ 07/05/17 18:15 08/04/17 23:59 Heparin Sodium (Porcine) (Heparin) 1,000 unit POSTHD INJ 07/10/17 06:00 07/10/17 18:00 Insulin Aspart (NovoLOG) BEFORE MEALS AND HS SUBQ 07/04/17 21:00 08/03/17 20:59 07/05/17 16:49 Ipratropium [place] (Atrovent) 0.5 mcg EVERY 6 HOURS PRN HHN Shortness of Breath 07/04/17 18:15 07/09/17 18:14 Magnesium Hydroxide (Mom) 30 ml HSPRN PRN ORAL Constipation 07/04/17 18:15 08/03/17 18:14 Ondansetron HCl (Zofran) 4 mg Q6H PRN IVP Nausea & Vomiting 07/04/17 18:15 08/03/17 18:14 Sodium Chloride 1,000 ml @ 500 mls/hr Q2H PRN IVLG sbp<90 during hd 07/10/17 06:00 07/10/17 18:00 Vancomycin HCl (Vanco rx to dose) 1 ea DAILY PRN MISC Per rx protocol 07/04/17 22:00 08/03/17 21:59 DARREN BARTLETT Jul 09, 2017 16:34
[2017-07-09] MEDS ORDERED: Ipratropium 0.02% Inh Soln 2.5ml UD HHN PRN (18:00)
[2017-07-09] MEDS ORDERED: Heparin Sod 1000 units/ml 10ml IV ONE (18:15)
[2017-07-09] MEDS ORDERED: Milk of Magnesia 30ml Ud ORAL PRN (18:15)
[2017-07-09] MEDS ORDERED: Heparin 1000 units/ml 1ml Vial INJ SCH (18:15)
[2017-07-09] MEDS ORDERED: guaiFENesin DM 100mg/5ml ORAL PRN (19:15)
[2017-07-09] MEDS: Dyna-Hex 2% Top Sol 2oz TOPIC SCH (20:00)
[2017-07-10] VITALS: BP 145/74
[2017-07-10 05:45] VITALS: BP 141/64
[2017-07-10] MEDS: Haloperidol 5mg/ml Inj IM SCH ×3 (05:56→22:00)
[2017-07-10] MEDS: NovoLOG Insulin Flexpen SUBQ SCH ×4 (05:56→21:00)
[2017-07-10] MEDS ORDERED: Heparin Sod 1000 units/ml 10ml IV SCH (06:00)
[2017-07-10] MEDS ORDERED: Heparin 1000 units/ml 1ml Vial INJ SCH ×2 (06:00)
[2017-07-10 08:00] VITALS: BP 131/75
[2017-07-10] MEDS: Docusate 100mg cap ORAL SCH ×2 (08:55→21:00)
[2017-07-10] MEDS: Heparin 5000 units/ml inj SUBQ SCH ×2 (08:55→21:00)
[2017-07-10 12:00] VITALS: BP 156/91
--- NOTE | 2017-07-10 13:06 | General Progress Note ---
Assessment/Plan Status: stable Assessment/Plan encephalopathy improving cognitive impairment -cont current meds -provide reality orientation and supportive therapy Subjective Date patient seen: Jul 09, 2017 Neurologic/Psychiatric: Reports: anxiety, depressed, emotional problems Allergies: Coded Allergies: NO KNOWN DRUG ALLERGIES (Verified Allergy, Unknown, 11/25/16) Subjective the pt has been agitated and noncompliant. the pt is illogical. she is more lucid. needs redirection Objective Last 24 Hour Vital Signs Date Time Temp Pulse Resp B/P (MAP) Pulse Ox O2 Delivery O2 Flow Rate FiO2 07/10/17 12:00 97.0 66 18 156/91 97 Room Air 97.0 07/10/17 08:55 71 131/75 07/10/17 08:00 97.3 71 18 131/75 97 Room Air 97.3 07/10/17 07:55 64 18 Room Air 07/10/17 05:45 97.0 66 20 141/64 97 97.0 07/10/17 00:00 97.7 66 18 145/74 98 Room Air 97.7 07/09/17 20:00 97.7 67 20 156/75 93 Room Air 97.7 07/09/17 19:16 65 18 Room Air 07/09/17 18:00 97.6 62 18 156/76 95 Nasal Cannula 2.0 97.6 07/09/17 16:00 98.6 62 19 162/70 97 Nasal Cannula 2.0 98.6 Intake and Output 07/09/17 07/10/17 19:00 07:00 Intake Total 200 ml 150 ml Balance 200 ml 150 ml Intake Oral 200 ml 150 ml # Voids 2 3 Height (Feet): 5 Height (Inches): 3.00 Weight (Pounds): 176 General Appearance: no apparent distress, alert, agitated Neurologic: alert, responsive, depressed affect Sveta Martinez M.D. Jul 10, 2017 13:06
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
--- NOTE | 2017-07-10 15:01 | Diagnostic Imaging Report ---
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 No comparison plain radiographs Findings: Somewhat unusual well-circumscribed focus of high STIR signal is seen within the first metatarsal, demonstrates minimal if any T1 abnormality, appearance not typical for acute osteomyelitis. High STIR signal is seen within the head of the fifth proximal phalanx, and within the fifth middle and distal phalanges. There is only equivocal minimal T1 signal abnormality demonstrated. No other significant marrow signal abnormality demonstrated There is edema of the soft tissues of the fifth toe, particularly laterally and distally, and generalized mild edema of the plantar surface of the forefoot. No well-defined fluid collections are demonstrated. Impression: High STIR signal with only equivocal minimal T1 abnormality in the fifth proximal phalangeal head, fifth middle and distal phalanges. This most likely represents reactive change from surrounding cellulitis, but early osteomyelitis is a possibility Abnormal medullary focus of high STIR signal in the first metatarsal, of uncertain significance but not likely to represent an acute inflammatory process Evidence of edema of the distal fifth digit and to lesser extent the plantar surface of the distal forefoot, nonspecific but could be secondary to cellulitis. No drainable fluid collection demonstrated
--- NOTE | 2017-07-10 15:46 | Diagnostic Imaging Report ---
Indication: 62-year-old female with nonhealing diabetic wound of left heel; evaluation for underlying osteomyelitis Technique: Sagittal, axial, and coronal T1 FSE and FSE STIR images of the ankle and hindfoot Comparison: none. No correlative plain radiographs Findings: Mildly prominent fluid is seen in the ankle joint. There is mild edema of the soft tissues, particularly medially and at the plantar surface. No focal drainable fluid collections are demonstrated. No marrow edema demonstrated. No evidence of acute fracture or dislocation. Impression: Evidence of soft tissue cellulitis. No marrow edema to suggest acute osteomyelitis demonstrated.
--- NOTE | 2017-07-10 17:11 | Podiatric Progress Note ---
Assessment/Plan Patient Jennifer Falcon is a 62 year old female who was admitted on Jul 04, 2017 at 15:51 with Problems: Assessment/Plan A/ 1) Pressure ulcer to left heel Stage 3 - healing 2) Nonpressure ulcer to left ankle to level of subq - new 3) Nonpressure ulcer to left 5th toe UTD - new 4) PAD 5) DM 6) ESRD 7) Noncompliant P/ 1) Cont Abx per ID 2) MRI left foot and ankle reviewed. Ostitis vs early osteo of left 5th toe. Needs angio before any surgical procedures. 3) Art ultz BLE reviewed. Dr Edmonds has seen. She is refusing A/V fistula , and may consider LE angio 4) Cont local care. 5) Patient's daughter called me to discuss case, but patient does not want me talking to daughter. 6) Advised patient that she is multiple medical issues that need to be addressed. She may lose her dialysis access and she may lose her leg if she does not comply with medical orders. Patient is currently refusing everything and wants to go home. 7) D/W PMD and Vasc sx Subjective Allergies: Coded Allergies: NO KNOWN DRUG ALLERGIES (Verified Allergy, Unknown, 11/25/16) Subjective Patient is refusing medical treatments. She does not want surgery, she wants to go home. Complaining that nothing has been done for her. Objective Exam Last 24 Hour Vital Signs Date Time Temp Pulse Resp B/P (MAP) Pulse Ox O2 Delivery O2 Flow Rate FiO2 07/10/17 12:00 97.0 66 18 156/91 97 Room Air 97.0 07/10/17 08:55 71 131/75 07/10/17 08:00 97.3 71 18 131/75 97 Room Air 97.3 07/10/17 07:55 64 18 Room Air 07/10/17 05:45 97.0 66 20 141/64 97 97.0 07/10/17 00:00 97.7 66 18 145/74 98 Room Air 97.7 07/09/17 20:00 97.7 67 20 156/75 93 Room Air 97.7 07/09/17 19:16 65 18 Room Air 07/09/17 18:00 97.6 62 18 156/76 95 Nasal Cannula 2.0 97.6 Microbiology Date/Time Source Procedure Growth Status 07/04/17 15:55 Blood Blood Culture - Final NO GROWTH AFTER 5 DAYS Complete 07/04/17 20:00 Wound Gram Stain - Final Complete 07/04/17 20:00 Wound Culture - Final Usual Skin Gina Complete 07/04/17 21:55 Nasal Nares Influenza Types A,B Antigen (MERON) - Final Complete 07/04/17 20:00 Rectal Mucosa VRE Culture - Final NO VANCOMYCIN RESISTANT ENTEROCOCCUS ... Complete Dermatological Wound Assessment : Exudate Amount: Scant Dermatological Narrative exam of left ankle, left heel and left 5th toe is unchanged Meliton Ashford DP Jul 10, 2017 17:11
--- NOTE | 2017-07-10 18:21 | Nephrology Progress Note ---
Assessment/Plan Plan HD tomorrow then DC home. Subjective Subjective "i must go to [facility] otherwise I'll lose my leg" Objective Objective Last 24 Hour Vital Signs Date Time Temp Pulse Resp B/P (MAP) Pulse Ox O2 Delivery O2 Flow Rate FiO2 07/10/17 12:00 97.0 66 18 156/91 97 Room Air 97.0 07/10/17 08:55 71 131/75 07/10/17 08:00 97.3 71 18 131/75 97 Room Air 97.3 07/10/17 07:55 64 18 Room Air 07/10/17 05:45 97.0 66 20 141/64 97 97.0 07/10/17 00:00 97.7 66 18 145/74 98 Room Air 97.7 07/09/17 20:00 97.7 67 20 156/75 93 Room Air 97.7 07/09/17 19:16 65 18 Room Air Intake and Output 07/09/17 07/10/17 19:00 07:00 Intake Total 200 ml 150 ml Balance 200 ml 150 ml Intake Oral 200 ml 150 ml # Voids 2 3 Height (Feet): 5 Height (Inches): 3.00 Weight (Pounds): 176 Objective Cv RR lungs CTA Abd SNT. BS + E Lt. foot ulcers. ESTER NOVAK Jul 10, 2017 18:21
--- NOTE | 2017-07-10 18:30 | Consultation ---
DATE OF CONSULTATION: 07/08/2017 CONSULTING PHYSICIAN: Sveta Martinez M.D. HISTORY: This is a 62-year-old female with a history of multiple medical problems, including end-stage renal disease, on hemodialysis; diabetes; peripheral vascular disease; elevated creatinine; history of UTI; sepsis; and high troponin, has been admitted for medical stabilization. The patient has been somewhat confused and has been refusing all other medications, becomes easily agitated. During the evaluation, the patient is somewhat uncooperative and was not answering the questions. She knows she is in the hospital and she knew her name, however, when I asked the date, she was unable to state that. She is also paranoid and fabricates at times. PAST PSYCHIATRIC HISTORY: She has a history of anxiety and has not been on psychotropic medication prior to the admission. Dr. Canales asked me to assess the patient for noncompliance. PAST MEDICAL HISTORY: Significant for sepsis, UTI, encephalopathy, elevated troponin, and ESRD. ALLERGIES: No known drug allergies. SUBSTANCE ABUSE HISTORY: No known history of illicit drug use or alcohol. MENTAL STATUS EXAMINATION: The patient is alert and oriented times self and place. Mood is agitated. Affect is constricted, congruent with mood. Thought process is concrete. Thought content, no suicidal or homicidal ideations. Positive for delusions. Insight and judgment impaired. ASSESSMENT: AXIS I Encephalopathy, agitation. AXIS II Deferred. AXIS III As above. AXIS IV Low. AXIS V Global assessment of functioning is 20. PLAN: 1. We will start the patient on low dose of antipsychotic, Zyprexa 2.5 mg at bedtime. 2. Provide the patient with supportive therapy and reality orientation. Sveta Martinez M.D. DR: KELLY JOB#: [id number] CC:
[2017-07-10] MEDS: Dyna-Hex 2% Top Sol 2oz TOPIC SCH (20:00)
[2017-07-10] MEDS ORDERED: Epogen (for ESRD on dialysis) SUBQ SCH (21:00)
--- NOTE | 2017-07-10 21:46 | Infectious Diseases Prog Note ---
Assessment/Plan Assessment/Plan ASSESSMENT AND PLAN: 1. Possible sepsis, fevers, ? line infection, left leg wounds, chest x-ray - negative, bc-negative, wc - negative - s/p cefepime and vancomycin - observe off abx - wound care per protocol and podiatry - check labs 2.The patient has end-stage renal disease, on hemodialysis, elevated creatinine. 3. Anemia. 4. Altered mental status. 5. Diabetes. 6. Peripheral vascular disease. 7. Left foot ulcer and wounds. 8. Podiatry followup per wound care protocol. I doubt the wounds and ulcers are source of sepsis. 9. Questionable hypertension. 10. Blood sugar treatment for diabetes per primary. 11. No known allergies. 12. Social history is negative. 13. Family history is noncontributory. 14. MAR was noted. 15. Case was discussed with RN. 16. Continue treatment per primary consultants. Subjective Constitutional: Denies: fever HEENT: Denies: congestion Respiratory: Denies: shortness of breath Cardiovascular: Denies: chest pain Gastrointestinal/Abdominal: Denies: nausea, vomiting, diarrhea Genitourinary: Reports: other - no gonzalez Psychiatric: Denies: depression Skin: Denies: rash Hematologic: Denies: bleeding Musculoskeletal: Denies: pain Allergies: Coded Allergies: NO KNOWN DRUG ALLERGIES (Verified Allergy, Unknown, 11/25/16) Objective Vital Signs Last 24 Hour Vital Signs Date Time Temp Pulse Resp B/P (MAP) Pulse Ox O2 Delivery O2 Flow Rate FiO2 07/10/17 19:34 69 18 Room Air 21 07/10/17 12:00 97.0 66 18 156/91 97 Room Air 97.0 07/10/17 08:55 71 131/75 07/10/17 08:00 97.3 71 18 131/75 97 Room Air 97.3 07/10/17 07:55 64 18 Room Air 07/10/17 05:45 97.0 66 20 141/64 97 97.0 07/10/17 00:00 97.7 66 18 145/74 98 Room Air 97.7 Height (Feet): 5 Height (Inches): 3.00 Weight (Pounds): 176 General Appearance: no acute distress HEENT: normocephalic, atraumatic, anicteric, mucous membranes moist, EOMI, pharynx normal, supple, no JVD Respiratory/Chest: lungs clear, normal breath sounds, no respiratory distress, no accessory muscle use Cardiovascular: normal rate, regular rhythm, no gallop/murmur, no JVD Abdomen: normal bowel sounds, soft, non tender, no organomegaly, non distended Genitourinary: other - no gonzalez Extremities: no cyanosis, other - left foot wounds stabel, no cellulitis Skin: no rash Neurologic/Psychiatric: associate chemist II-XII grossly normal, alert, oriented x 3, responsive Lymphatic: no neck adenopathy Musculoskeletal: no effusion Objective Chest x-ray - negative Findings: Right jugular tunneled dialysis catheter is again demonstrated. The heart is mildly enlarged. The lungs and pleural spaces are clear. No significant interim change Impression: Cardiomegaly No acute process Microbiology Date/Time Source Procedure Growth Status 07/04/17 15:55 Blood Blood Culture - Final NO GROWTH AFTER 5 DAYS Complete 07/04/17 20:00 Wound Gram Stain - Final Complete 07/04/17 20:00 Wound Culture - Final Usual Skin Gina Complete 07/04/17 21:55 Nasal Nares Influenza Types A,B Antigen (MERON) - Final Complete 07/04/17 20:00 Rectal Mucosa VRE Culture - Final NO VANCOMYCIN RESISTANT ENTEROCOCCUS ... Complete Labs Test 07/08/17 18:10 Random Vancomycin Level 9.2 ug/mL wbc - 7.8 hgb - 9.8 cr - 7.5 Current Medications Medications (Trade) Dose Ordered Sig/Jono Route PRN Reason Start Time Stop Time Status Last Admin Dose Admin Acetaminophen (Tylenol) 650 mg Q4H PRN ORAL Mild Pain (Pain Scale 1-3) 07/09/17 18:15 08/03/17 18:14 Amlodipine Besylate (Norvasc) 10 mg DAILY ORAL 07/10/17 09:00 08/07/17 10:29 Bisacodyl (Dulcolax) 10 mg HSPRN PRN RECTAL Constipation 07/09/17 18:45 08/03/17 18:44 Chlorhexidine Gluconate (Yamilka-Hex 2%) 1 applic DAILY@1999 TOPIC 07/09/17 20:00 08/04/17 19:59 Dextrose (Dextrose 50%) STAT PRN IV Hypoglycemia 07/09/17 21:00 08/03/17 20:59 Docusate Sodium (Colace) 100 mg EVERY 12 HOURS ORAL 07/09/17 21:00 08/03/17 20:59 Epoetin [place] (Procrit (for ESRD on dialysis)) 5,000 units MON-MON-MON SUBQ 07/10/17 21:00 08/04/17 20:59 Guaifenesin/ Dextromethorphan (Robitussin DM) 5 ml Q8H PRN ORAL For Cough 07/09/17 19:15 08/06/17 11:14 Haloperidol Lactate (Haldol) 2 mg Q8HR IM 07/09/17 22:00 08/07/17 13:59 Heparin Sodium (Porcine) (Heparin 5000 units/ml) 5,000 units EVERY 12 HOURS SUBQ 07/09/17 21:00 08/03/17 20:59 Insulin Aspart (NovoLOG) BEFORE MEALS AND HS SUBQ 07/09/17 21:00 08/03/17 20:59 Ipratropium [place] (Atrovent) 0.5 mcg Q6H PRN HHN Shortness of Breath 07/09/17 18:00 07/14/17 17:59 Magnesium Hydroxide (Mom) 30 ml HSPRN PRN ORAL Constipation 07/09/17 18:15 08/03/17 18:14 Ondansetron HCl (Zofran) 4 mg Q6H PRN IVP Nausea & Vomiting 07/09/17 18:15 08/03/17 18:14 DARREN BARTLETT Jul 10, 2017 21:46
[2017-07-10] MEDS ORDERED: Norco 5mg/325mg tab ORAL PRN (22:30)
[2017-07-11 04:00] VITALS: BP 159/77
[2017-07-11] MEDS: Haloperidol 5mg/ml Inj IM SCH ×2 (06:00→14:00)
[2017-07-11] MEDS: NovoLOG Insulin Flexpen SUBQ SCH ×3 (06:24→16:30)
[2017-07-11 08:00] VITALS: BP 119/69
[2017-07-11] MEDS: Docusate 100mg cap ORAL SCH (08:51)
[2017-07-11] MEDS: Heparin 5000 units/ml inj SUBQ SCH (08:53)
--- NOTE | 2017-07-11 10:50 | Diagnostic Imaging Report ---
APPROVED REPORT CPT Code: 97369 Present Symptoms Comments: R/O DVT BILATERAL: Imaging reveals a patent deep venous system bilaterally. There is no evidence of thrombus within the femoral, popliteal or tibial segments. The greater saphenous veins are also within normal limits. Doppler indicates normal spontaneous flow within these segments.
--- NOTE | 2017-07-11 10:52 | Diagnostic Imaging Report ---
APPROVED REPORT CPT Code: 49569 Present Symptoms Comments: Pain Comments Limited compression tolerated due to pain. BILATERAL: Imaging reveals a patent deep venous system bilaterally. There is no evidence of thrombus within the femoral, popliteal or tibial segments. The greater saphenous veins are also within normal limits. Doppler indicates normal spontaneous flow within these segments.
--- NOTE | 2017-07-11 10:53 | Diagnostic Imaging Report ---
APPROVED REPORT CPT Code: 88598 Symptoms Non-healing Ulcer : Left Comments: Pain Cellulitis RIGHT LEG: Common femoral artery waveform analysis is within normal limits at rest. Color flow duplex sonography reveals calcification throughout the superficial femoral and popliteal arteries. There is no evidence of significant stenosis or occlusion within these segments. The tibioperoneal trunk is patent. The tibial arteries were also moderately calcified. Doppler waveform analysis is monophasic consistent, with moderate to severe ischemia at rest. LEFT LEG: Common femoral artery waveform analysis is within normal limits at rest. Imaging reveals calcification throughout the superficial femoral artery. Color flow duplex sonography reveals an occlusion in the proximal popliteal artery. Reconstitution is noted at the distal popliteal artery. The tibioperoneal trunk is patent. The dorsalis pedis artery was not well visualized due to open wound. The posterior tibial artery is occluded and anterior tibial artery is patent. Doppler waveform analysis (anteior tibial artery) is monophasic consistent, with moderate to severe ischemia at rest. ROLANDO Dan was notified of abnormal results at 1640 hours.
--- NOTE | 2017-07-11 12:48 | Nephrology Progress Note ---
Assessment/Plan Plan HD today pending, the DC home. DW Dr. Martinez. Pt. lacks capacity to make her own decisions.. Subjective Subjective "i must go home now" Objective Objective Last 24 Hour Vital Signs Date Time Temp Pulse Resp B/P (MAP) Pulse Ox O2 Delivery O2 Flow Rate FiO2 07/11/17 08:51 72 111/80 07/11/17 08:00 97.2 73 20 119/69 Room Air 97.2 07/11/17 07:54 73 18 Room Air 21 07/11/17 07:00 Room Air 07/11/17 04:00 98.1 75 20 159/77 95 98.1 07/10/17 19:34 69 18 Room Air 21 Intake and Output 07/10/17 07/11/17 19:00 07:00 Intake Total 500 ml Balance 500 ml Intake Oral 500 ml # Voids 2 1 # Bowel Movements 2 1 Height (Feet): 5 Height (Inches): 3.00 Weight (Pounds): 176 Objective Cv RR lungs CTA Abd SNT. BS + E Lt. foot ulcers. ESTER NOVAK Jul 11, 2017 12:48
--- NOTE | 2017-07-11 16:06 | Infectious Diseases Prog Note ---
Assessment/Plan Assessment/Plan ASSESSMENT AND PLAN: 1. Possible sepsis, fevers, ? line infection, left leg wounds, chest x-ray - negative, bc-negative, wc - negative - s/p cefepime and vancomycin - stable off abx - wound care per protocol and podiatry - check labs - d/w podiatry, local wound care for now, no abx - vascular w/u 2.The patient has end-stage renal disease, on hemodialysis, elevated creatinine. 3. Anemia. 4. Altered mental status. 5. Diabetes. 6. Peripheral vascular disease. 7. Left foot ulcer and wounds. 8. Podiatry followup per wound care protocol. I doubt the wounds and ulcers are source of sepsis. 9. Questionable hypertension. 10. Blood sugar treatment for diabetes per primary. 11. No known allergies. 12. Social history is negative. 13. Family history is noncontributory. 14. MAR was noted. 15. Case was discussed with RN. 16. Continue treatment per primary consultants. Subjective Constitutional: Denies: fever HEENT: Denies: congestion Respiratory: Denies: shortness of breath Cardiovascular: Denies: chest pain Gastrointestinal/Abdominal: Denies: nausea, vomiting, diarrhea Genitourinary: Reports: other - no gonzalez Neurologic: Denies: headache Psychiatric: Denies: depression Skin: Denies: rash Hematologic: Denies: bleeding Musculoskeletal: Denies: pain Allergies: Coded Allergies: NO KNOWN DRUG ALLERGIES (Verified Allergy, Unknown, 11/25/16) Objective Vital Signs Last 24 Hour Vital Signs Date Time Temp Pulse Resp B/P (MAP) Pulse Ox O2 Delivery O2 Flow Rate FiO2 07/11/17 08:51 72 111/80 07/11/17 08:00 97.2 73 20 119/69 Room Air 97.2 07/11/17 07:54 73 18 Room Air 21 07/11/17 07:00 Room Air 07/11/17 04:00 98.1 75 20 159/77 95 98.1 07/10/17 19:34 69 18 Room Air 21 Height (Feet): 5 Height (Inches): 3.00 Weight (Pounds): 176 General Appearance: no acute distress HEENT: normocephalic, atraumatic, anicteric, mucous membranes moist Respiratory/Chest: lungs clear, normal breath sounds, no respiratory distress, no accessory muscle use Cardiovascular: normal rate, regular rhythm, no gallop/murmur, no JVD Abdomen: normal bowel sounds, soft, non tender, no organomegaly, non distended Genitourinary: other - no gonzalez Extremities: no cyanosis, other - left foot wounds stable, no ischemia Skin: no rash 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 The heart is mildly enlarged. The lungs and pleural spaces are clear. No significant interim change Impression: Cardiomegaly No acute process Microbiology Date/Time Source Procedure Growth Status 07/04/17 15:55 Blood Blood Culture - Final NO GROWTH AFTER 5 DAYS Complete 07/04/17 20:00 Wound Gram Stain - Final Complete 07/04/17 20:00 Wound Culture - Final Usual Skin Gina Complete 07/04/17 21:55 Nasal Nares Influenza Types A,B Antigen (MERON) - Final Complete 07/04/17 20:00 Rectal Mucosa VRE Culture - Final NO VANCOMYCIN RESISTANT ENTEROCOCCUS ... Complete wbc - 7.8 hgb - 9.8 cr - 7.5 Current Medications Medications (Trade) Dose Ordered Sig/Jono Route PRN Reason Start Time Stop Time Status Last Admin Dose Admin Acetaminophen (Tylenol) 650 mg Q4H PRN ORAL Mild Pain (Pain Scale 1-3) 07/09/17 18:15 08/03/17 18:14 Acetaminophen/ Hydrocodone Bitart ([place] 5/325) 1 tab Q6H PRN ORAL For Pain 07/10/17 22:30 07/17/17 22:29 Amlodipine Besylate (Norvasc) 10 mg DAILY ORAL 07/10/17 09:00 08/07/17 10:29 Bisacodyl (Dulcolax) 10 mg HSPRN PRN RECTAL Constipation 07/09/17 18:45 08/03/17 18:44 Chlorhexidine Gluconate (Yamilka-Hex 2%) 1 applic DAILY@1999 TOPIC 07/09/17 20:00 08/04/17 19:59 Dextrose (Dextrose 50%) STAT PRN IV Hypoglycemia 07/09/17 21:00 08/03/17 20:59 Docusate Sodium (Colace) 100 mg EVERY 12 HOURS ORAL 07/09/17 21:00 08/03/17 20:59 Epoetin Jeremy (Procrit (for ESRD on dialysis)) 5,000 units MON-MON-MON SUBQ 07/10/17 21:00 08/04/17 20:59 Guaifenesin/ Dextromethorphan (Robitussin DM) 5 ml Q8H PRN ORAL For Cough 07/09/17 19:15 08/06/17 11:14 Haloperidol Lactate (Haldol) 2 mg Q8HR IM 07/09/17 22:00 08/07/17 13:59 Heparin Sodium (Porcine) (Heparin 5000 units/ml) 5,000 units EVERY 12 HOURS SUBQ 07/09/17 21:00 08/03/17 20:59 Insulin Aspart (NovoLOG) BEFORE MEALS AND HS SUBQ 07/09/17 21:00 08/03/17 20:59 Ipratropium [place] (Atrovent) 0.5 mcg Q6H PRN HHN Shortness of Breath 07/09/17 18:00 07/14/17 17:59 Magnesium Hydroxide (Mom) 30 ml HSPRN PRN ORAL Constipation 07/09/17 18:15 08/03/17 18:14 Ondansetron HCl (Zofran) 4 mg Q6H PRN IVP Nausea & Vomiting 07/09/17 18:15 08/03/17 18:14 DARREN BARTLETT Jul 11, 2017 16:06
[2017-07-11 16:15] VITALS: BP 152/76
--- NOTE | 2017-07-11 16:47 | Podiatric Progress Note ---
Assessment/Plan Patient Jennifer Falcon is a 62 year old female who was admitted on Jul 04, 2017 at 15:51 with Problems: Assessment/Plan A/ 1) Pressure ulcer to left heel Stage 3 - healing 2) Nonpressure ulcer to left ankle to level of subq - new 3) Nonpressure ulcer to left 5th toe UTD - new 4) PAD 5) DM 6) ESRD 7) Noncompliant P/ 1) Cont Abx per ID 2) MRI left foot and ankle reviewed. Ostitis vs early osteo of left 5th toe. Needs angio before any surgical procedures. 3) Art ultz BLE reviewed. Dr Edmonds has seen. She is refusing A/V fistula , and may consider LE angio 4) Cont local care. 5) Patient's sister is here today and advised her of all the medical issues and needed procedures. She states that she is now amenable to angio but refuses fistula placement. 6) Will follow as out patient Subjective Allergies: Coded Allergies: NO KNOWN DRUG ALLERGIES (Verified Allergy, Unknown, 11/25/16) Subjective Patient much calmer today. She is happy that she is going home. Objective Exam Last 24 Hour Vital Signs Date Time Temp Pulse Resp B/P (MAP) Pulse Ox O2 Delivery O2 Flow Rate FiO2 07/11/17 16:15 98.0 69 16 152/76 97 Room Air 98.0 07/11/17 08:51 72 111/80 07/11/17 08:00 97.2 73 20 119/69 Room Air 97.2 07/11/17 07:54 73 18 Room Air 21 07/11/17 07:00 Room Air 07/11/17 04:00 98.1 75 20 159/77 95 98.1 07/10/17 19:34 69 18 Room Air 21 Microbiology Date/Time Source Procedure Growth Status 07/04/17 15:55 Blood Blood Culture - Final NO GROWTH AFTER 5 DAYS Complete 07/04/17 20:00 Wound Gram Stain - Final Complete 07/04/17 20:00 Wound Culture - Final Usual Skin Gina Complete 07/04/17 21:55 Nasal Nares Influenza Types A,B Antigen (MERON) - Final Complete 07/04/17 20:00 Rectal Mucosa VRE Culture - Final NO VANCOMYCIN RESISTANT ENTEROCOCCUS ... Complete Dermatological Wound Assessment : Exudate Amount: Scant Dermatological Narrative left heel, ankle and 5th toe are stable, no signs of acute infection Meliton Ashford DPM Jul 11, 2017 16:47
--- NOTE | 2017-07-11 18:38 | General Progress Note ---
Assessment/Plan Assessment/Plan encephalopathy improving cognitive impairment -cont current meds -provide reality orientation and supportive therapy -the pt is cleared to be discharged Subjective Date patient seen: Jul 11, 2017 Genitourinary: Reports: urgency Neurologic/Psychiatric: Reports: anxiety, depressed, emotional problems Allergies: Coded Allergies: NO KNOWN DRUG ALLERGIES (Verified Allergy, Unknown, 11/25/16) Subjective the pt mri was noraml the pt wants to go home. she is paranoid and didnt know the date. the pt was scattered and Objective Last 24 Hour Vital Signs Date Time Temp Pulse Resp B/P (MAP) Pulse Ox O2 Delivery O2 Flow Rate FiO2 07/11/17 16:15 98.0 69 16 152/76 97 Room Air 98.0 07/11/17 08:51 72 111/80 07/11/17 08:00 97.2 73 20 119/69 Room Air 97.2 07/11/17 07:54 73 18 Room Air 21 07/11/17 07:00 Room Air 07/11/17 04:00 98.1 75 20 159/77 95 98.1 07/10/17 19:34 69 18 Room Air 21 Intake and Output 07/10/17 07/11/17 19:00 07:00 Intake Total 500 ml Balance 500 ml Intake Oral 500 ml # Voids 2 1 # Bowel Movements 2 1 Height (Feet): 5 Height (Inches): 3.00 Weight (Pounds): 176 Sveta Martinez M.D. Jul 11, 2017 18:38
--- NOTE | 2017-07-13 16:18 | Discharge Summary ---
Discharge Summary Hospital Course Date of Admission Jul 04, 2017 at 15:51 Date of Discharge Jul 11, 2017 at 17:16 Admitting Diagnosis AMS RL Falcon is a 62 year old female who was admitted on Jul 04, 2017 at 15:51 for Altered Mental Status Hospital Course [id number] Discharge Discharge Disposition Patient was discharged to Home (01) Discharge Diagnoses: Liliam Rebollar NP Jul 13, 2017 16:18
--- NOTE | 2017-07-14 03:00 | Discharge Summary 2 SIG ---
DATE OF ADMISSION: 07/04/2017 DATE OF DISCHARGE: 07/11/2017 CONSULTANTS: 1. Daya Christianson M.D. 2. Meliton Ashford M.D. 3. Sveta Martinez M.D. BRIEF HOSPITAL COURSE: The patient is a 62-year-old female, who has end-stage renal disease, on hemodialysis every Monday, , and Monday, was taken to wound care center, however, she was sent to the emergency room due to altered level of consciousness. She has medical history significant for end-stage renal failure, type 2 diabetes mellitus, peripheral vascular disease, and left foot ulcer. She had poor hemodialysis access to a right-sided PermCath. On evaluation at ED, the patient was febrile. Blood work showed no leukocytosis. Lactic acid was 3.5. Creatinine was 6.5 and urinalysis was indicative of infection. She had elevated troponin of 0.531, likely troponin leak from end-stage renal disease. The patient denied chest pain. EKG was in normal sinus rhythm with no acute ischemic changes seen. She had a head CT that showed no acute process with nonspecific white matter hypoattenuation due to chronic small vessel disease. She was started on antibiotics and was given IV fluids. She was admitted for evaluation of altered mental status, sepsis, urine infection, and elevated troponin. She was pancultured and was followed by Infectious Disease specialist. She was started on cefepime and vancomycin pending culture results. She came in with pressure ulcer on the left heel stage III, non-pressure ulcer to the left ankle to level of subcutaneous layer; non-pressure ulcer to the left fifth toe unstageable. She was followed by Dr. Ashford. She was given local wound care. The patient had been noncompliant with treatment. She had a venous duplex of the lower extremity that was negative for acute DVT. Arterial ultrasound showed monophasic waveform analysis to the left leg, consistent with [id number] ischemia. She was given inpatient hemodialysis. Blood culture did not isolate any growth. Wound culture showed usual skin mahsa. Influenza screen was negative. The patient had been agitated and paranoid. She underwent psychiatric evaluation. She was diagnosed with encephalopathy and agitation. She was started on Zyprexa 2.5 mg at bedtime. Insight and judgment are impaired. MRI of the heel and foot was done, negative for osteomyelitis. The patient will eventually need an angiogram before any surgical procedures. She is refusing AV fistula placement and refused angiogram. She was advised for multiple medical issues and may lose her dialysis access as she may lose her leg if she does not want to comply with medical orders. The patient was refusing medical treatment and wants to go home. She was eventually discharged home with daughter. FINAL DIAGNOSES: 1. Possible sepsis. 2. End-stage renal disease, on hemodialysis. 3. Pressure ulcer to the left heel, stage III present on admission. 4. Non-pressure ulcer to the left ankle and fifth toe, present on admission. 5. Peripheral arterial disease. 6. Diabetes mellitus. 7. Noncompliance. 8. Encephalopathy. 9. Cognitive impairment. 10. Agitation. DISPOSITION: The patient was discharged home. DISCHARGE MEDICATIONS: Refer to medication list. DISCHARGE INSTRUCTIONS: Follow up as outpatient. Follow up with Vascular Surgery as outpatient. Continue with wound care. Continue with hemodialysis as scheduled. Sakshi Canales M.D. I have been assigned to dictate discharge summary on this account and I was not involved in the patient's management. Liliam Rebollar N.P. DR: SUDHA JOB#: [id number] CC: TONY
== END 2017-07-11 17:16 | disposition home or self-care (01) | DRG 314 ==
LOC: EMR 15:35 → 4W 15:51 → EDBEDREQ 16:32 → 2E 17:31 → 4E 07-08 09:46 → 2E 07-08 09:48 → 4E 07-09 18:16
DX: T82.7XXA Infection and inflammatory reaction due to other cardiac and vascular devices, implants and grafts, initial encounter (principal); N18.6 End stage renal disease; A41.9 Sepsis, unspecified organism; G93.40 Encephalopathy, unspecified; L89.623 Pressure ulcer of left heel, stage 3; F03.90 Unspecified dementia, unspecified severity, without behavioral disturbance, psychotic disturbance, mood disturbance, and anxiety; L97.328 Non-pressure chronic ulcer of left ankle with other specified severity; D64.9 Anemia, unspecified; E11.22 Type 2 diabetes mellitus with diabetic chronic kidney disease; L97.529 Non-pressure chronic ulcer of other part of left foot with unspecified severity; R41.82 Altered mental status, unspecified; Z99.2 Dependence on renal dialysis; I73.9 Peripheral vascular disease, unspecified; N18.9 Chronic kidney disease, unspecified; Z79.4 Long term (current) use of insulin; Z91.19 Patient's noncompliance with other medical treatment and regimen
CPT/HCPCS: 36415; 70450; 71045; 80048; 80053; 80202; 81003; 82550; 82553; 82962; 83605; 83880; 84100; 84484; 85025; 86710; 87040; 87070; 87081; 87205; 93005; 93925; 93970; 94664; 99285; J1815; J2405